=== PATIENT | female | born 1970 | race Caucasian/White ===

== ENCOUNTER 2018-09-07 06:18 | Day surgery (SDC) | payer MEDICAID, SELFPAY ==
[2018-08-07 08:53] VITALS: BMI 20.4
[2018-09-07 06:53] VITALS: BP 112/73; PULSE 72; RESP 16; TEMP 37.1; O2SAT 100; BMI 20.8
[2018-09-07 06:58] LABS: Internal QC Validated? YES +Cl - CLEAR BKGD; Pregnancy, Urine Negative Negative
--- NOTE | 2018-09-07 07:25 | HP.PCM_ITS ---
Problem List (1) Anal or rectal pain Status: Acute (2) Hemorrhage of anus and rectum Status: Acute History of Present Illness Date of Admission: 09/07/18 DAVIDSON TURNER, is a 47 F who presents to the office today for occasional rectal bleeding and significant severe anal pain. Patient has had episodes of significant anal pain that have been going on for many years however over the last 3 months she has had 2 particular episodes that last for about 20 minutes having some ear pain in the anus with squeezing she thought that it might be food related in the past however there is really no triggers that she can recall. She has had rectal bleeding with this in the past as well all over the last one did not result in rectal bleeding. She has had no new changes in her medication she has had no trauma. She has not been complaining of any anal l eakage She does have a family history of maternal aunts x2 who have had colon cancer. Past Medical History Medical History: Medical History (Last Reviewed 09/07/18 @ 07:23 by Jovon Patiño MD) History of wisdom tooth extraction K08.409 Allergies No Known Allergies Allergy (Verified 09/04/18 11:48) Home Medications: Ambulatory Orders Medication Instructions Recorded multivitamin,[id number] 1 tab PO DAILY 08/07/18 tablet Surgical History: Surgical History (Last Reviewed 09/07/18 @ 07:23 by Jovon Patiño MD) H/O breast augmentation Z98.82 History of arthroscopic knee surgery Z98.890 Smoking Status: Never smoker Tobacco Use: Non-smoker - *Family History Maternal Family History: Family History (Last Reviewed 09/07/18 @ 07:23 by Jovon Patiño MD) Mother Cancer Grandmother Colon cancer Grandfather Colon cancer Father Diabetes Review of Systems Constitutional: Denies: Chills, Fever, Weight Change Cardiovascular: Denies: Chest Pain, Chest Pressure, Chest Tightness, Palpitations Respiratory: Denies: Cough, Hemoptysis, Shortness of breath at rest, Shortness of breath upon exertion, Wheezing Gastrointestinal: Denies: Abdominal Pain, Constipation, Diarrhea, Hematemesis, Nausea, Melena, Vomiting VTE Information - Inpt Only VTE Present on Admission: No VTE Mechan Device Prophylaxis: None VTE Pharm Prophylaxis ordered?: No Reason prophylaxis not ordered:: Treatment Not Indicated Patient Problems: Active and Suspected Problems (Last Reviewed 08/07/18 @ 09:47 by Jovno Patiño MD) Anal or rectal pain (Acute) Hemorrhage of anus and rectum (Acute) - Physical Exam General: Alert, Oriented x3 Neck: Supple, No JVD Lungs: Clear to auscultation Cardiovascular: Regular rate, Regular Rhythm, No murmurs Abdomen: Bowel Sounds Present, Soft, Non Tender, Non-Distended Vital Signs Temp Pulse Resp BP Pulse Ox 98.8 F 72 16 112/73 100 09/07/18 06:53 09/07/18 06:53 09/07/18 06:53 09/07/18 06:53 09/07/18 06:53 Oxygen Delivery Method Room Air Weight: 117 lb 8.102 oz Body Mass Index (BMI) 20.8 Laboratory Tests Past 24 Hrs 09/07/18 06:35 Urine Test Negative Assessment/Plan All Active Problems (Last Reviewed 08/07/18 @ 09:47 by Jovon Patiño MD) Anal or rectal pain (Acute) Hemorrhage of anus and rectum (Acute) Left breast lump (Acute) My plan is to perform a colonoscopy for evaluation. I have explained the risk and benefits of the procedure and described the procedure in detail. I discussed the risk to the patient including but not limited to infection bleeding perforation of the GI tract which could require additional surgeries. Also we discussed the possibility of an incomplete procedure or injury to any internal organs or complications of anesthesia. The patient understands these risks and agrees to proceed.
--- NOTE | 2018-09-07 07:30 | COLBX_PTH ---
PATIENT: DAVIDSON TURNER LOC: EN U#:[id number] AGE/SX: 47/F ROOM: RE09/07/[address]: Dr. Jovon Patiño MD : 1970 BED: DIS: 09/07/2018 SPEC #: [id number] RECD: 09/07/18 10:06 STATUS: DIONE NATALI #: [id number] DARION: 09/07/18 07:[address]: Jovon Patiño DEPT: SURGICAL PATHOLOGY RECD BY: Neal Angela ENTERED: 09/07/18 10:18 SP TYPE: COLON BX OT DR: Krista Viera, REGIONAL DIRECTOR-C Tissues: COLON BIOPSY Procedures: Surgery Specimen Level IV HEADER OPERATION: Colonoscopy (MAC) PRE-OP DIAGNOSIS: Rectal pain; hemorrhage of rectum/anus TISSUE SUBMITTED: Random colonic biopsy MICROSCOPIC DIAGNOSIS Colon, random biopsy: No pathologic diagnosis. No evidence of colitis. See comment. AM:marylou 09/08/18 COMMENT Focal recent mucosal hemorrhage is noted in the mucosa. The significance of this is unclear. MICROSCOPIC DESCRIPTION Slides are reviewed. GROSS DESCRIPTION Received in fixative is one container labeled with the patient's name and designated random colonic biopsy. The specimen consists of multiple irregular fragments of light rolon soft tissue that in aggregate measure 2 x 0.5 x 0.1 cm. The specimen is totally submitted in one cassette. / SJ:marylou 09/07/18 TC:5 CPT: 11294
[2018-09-07 07:45] VITALS: BP 112/73; BP 93/61; PULSE 69; RESP 16; TEMP 36.6; O2SAT 100
--- NOTE | 2018-09-07 07:49 | OP.ENDO_ITS ---
09/07/2018 Krista Viera NP [facility] [address] [place] [id number] Re : Colonoscopy procedure for Brenda Whatley Dear Ms. Viera This procedure was performed on Friday, September 07, 2018. My impressions and recommendations are as follows: Impressions : - The entire examined colon is normal. Biopsied. - The entire examined colon is normal. Recommendations : - Discharge patient to home. - Resume previous diet. - Continue present medications. - Await pathology results. - Repeat colonoscopy in 10 years for screening purposes. - Return to my office in 1 week. My findings are described in the full procedure note, which is enclosed. If I can be of further assistance, please feel free to contact me at Doctor phone number(s): , Fax: [phone], Work: . Sincerely, MD Jovon Lin MD 09/07/2018 7:49:20 AM This report has been signed electronically.
[2018-09-07 07:50] VITALS: BP 112/73; PULSE 65; RESP 18; O2SAT 100
[2018-09-07 07:55] VITALS: BP 112/73; BP 93/66; PULSE 60; RESP 18; O2SAT 100
[2018-09-07 08:00] VITALS: BP 112/73; BP 91/64; PULSE 62; RESP 18; TEMP 36.2; O2SAT 100
[2018-09-07 08:10] VITALS: BP 112/73
== END 2018-09-07 08:32 | disposition home or self-care (01) ==
LOC: EN 06:19 → AC 06:28
PROVIDERS: Anesthesiology; Family Provider Nurse Practitioner; PCP Nurse Practitioner; Referring Provider Surgery; Visit Provider Surgery
PROC: 0DJD8ZZ Inspection of Lower Intestinal Tract, Via Natural or Artificial Opening Endoscopic (ICD-10-PCS; CPT 45378; principal; 2018-09-07 07:25)
DX: K62.89 Other specified diseases of anus and rectum (principal); K62.5 Hemorrhage of anus and rectum; F32.9 Major depressive disorder, single episode, unspecified; F41.9 Anxiety disorder, unspecified; Z80.0 Family history of malignant neoplasm of digestive organs
CPT/HCPCS: 45380; 81025; 88305; J7120

== ENCOUNTER → 2024-05-20 | Outpatient (CLI) | payer OTHER, SELFPAY ==
[2024-05-20 20:59] LABS: Absolute Lymphocyte Count 1.18 X10^3/uL (0.83-4.51); Absolute Neutrophil Count 2.5 X10^3/uL (2.0-7.7); Basophil# 0.04 X10^3/uL; Eosinophil# 0.03 X10^3/uL; Eosinophils% 0.8 % (0-5); Hematocrit 40.6 % (37-47); Hemoglobin 13.5 g/dL (12.0-15.0); Lymphocyte # 1.18 X10^3/ul (0.83-4.51); Mean Corp Hgb Conc 33.3 g/dL (32-36); Mean Corpuscular Hgb 30.1 pg (27.0-32.0); Mean Corpuscular Volume 90.6 fL (81-99); Mean Platelet Vol. 11.3 fl (6.2-12.0); Monocyte# 0.21 X10^3/uL; Monocyte% 5.3 % (0-10); NRBC Flagged by Analyzer 0 % (0-5); Neutrophil # 2.47 X10^3/uL (2.7-7.7); Neutrophil % 62.9 % (47-70); Platelet Count 229 K/mm3 (150-450); RBC Distribution Width CV 12.8 % (11.6-14.6); RBC Distribution Width SD 41.7 fl (35.1-43.9); Red Blood Count 4.48 M/mm3 (4.2-5.4); White Blood Count 3.9 K/mm3 (4.4-11.0)
[2024-05-20 21:21] LABS: ALB/GLOB Ratio 1.2 RATIO (0.9-2.4); AST(SGOT) 21 U/L (15-37); Alanine Aminotransfer ALT/SGPT 26 U/L (13-56); Albumin, Serum 4.1 g/dL (3.2-5.0); Alkaline Phosphatase 94 U/L (45-117); Anion Gap 3 (5-15); BUN 12 mg/dL (7-18); BUN/Creat Ratio 8.8 RATIO (10-20); Chloride 106 mmol/L (98-107); Cholesterol 179 mg/dL (200); Creatinine, Serum 1.36 mg/dL (0.55-1.02); EST Glomerular Filtration Rate 44 mL/min (>60); Est Glom Filt Rate - Afr Amer 53 mL/min (>60); Globulin 3.3 g/dL (2.2-4.2); Glucose 163 mg/dL (74-106); High Density Lipoprotein 78 mg/dL; Potassium 3.7 mmol/L (3.5-5.1); Protein, Total 7.4 g/dL (6.4-8.2); Sodium Level 140 mmol/L (136-145); Triglycerides 116 mg/dL; Very Low Density Lipoprotein 23 mg/dL (5-40)
== END | disposition home or self-care (01) ==
PROVIDERS: PCP Nurse Practitioner; Referring Provider Nurse Practitioner; Visit Provider Nurse Practitioner
DX: Z00.00 Encounter for general adult medical examination without abnormal findings (principal)
CPT/HCPCS: 80053; 80061; 84443; 85025

== ENCOUNTER → 2024-06-22 | Outpatient (CLI) | payer OTHER, SELFPAY ==
[2024-06-22 22:55] LABS: ALB/GLOB Ratio 1.3 RATIO (0.9-2.4); AST(SGOT) 17 U/L (15-37); Alanine Aminotransfer ALT/SGPT 24 U/L (13-56); Albumin, Serum 4.2 g/dL (3.2-5.0); Alkaline Phosphatase 92 U/L (45-117); Anion Gap 5 (5-15); BUN 18 mg/dL (7-18); BUN/Creat Ratio 14.9 RATIO (10-20); Calcium,Total 9.3 mg/dL (8.5-10.1); Chloride 107 mmol/L (98-107); Creatinine, Serum 1.21 mg/dL (0.55-1.02); EST Glomerular Filtration Rate 50 mL/min (>60); Est Glom Filt Rate - Afr Amer 60 mL/min (>60); Globulin 3.3 g/dL (2.2-4.2); Glucose 114 mg/dL (74-106); Potassium 3.5 mmol/L (3.5-5.1); Protein, Total 7.5 g/dL (6.4-8.2); Sodium Level 141 mmol/L (136-145)
== END | disposition home or self-care (01) ==
PROVIDERS: PCP Nurse Practitioner; Visit Provider Nurse Practitioner
DX: R94.4 Abnormal results of kidney function studies (principal)
CPT/HCPCS: 80053

== ENCOUNTER → 2024-12-10 | Outpatient (CLI) | payer OTHER, SELFPAY ==
--- OUTSIDE RECORDS SUMMARY | 2024-12-10 22:47 | XMS RPT_ITS | CCD ---
Author Organization [facility] Partnership [facility] Care Team Providers Care Scallop Cutter Name Role Phone Romel Amari Unavailable Unavailable Pcp, No Primary Care Provider Unavailabl e Unavailable Primary Care Provider Unavailabl e Unavailable Primary Care Provider Unavailabl e ALICIA HART Attending Unavailable SELF Referring Unavailable IERNA DAMON Attending Unavailable IRENA DAMON Referring Unavailable IRENA DAMON Attending Unavailable Maximiliano ROOM INSPECTOR.PICK UP OPERATOR, Stacia Dominguez Primary Care Provide r STACIA NIEVES Referring Unavailable STACIA NIEVES Primary Care Unavailable Maximiliano PUBLIC AFFAIRS SPECIALIST, Stacia Attending Unavailable Maximiliano PUBLIC AFFAIRS SPECIALIST, Stacia Referring Unavailable Maximiliano PUBLIC AFFAIRS SPECIALIST, Stacia Primary Care Unavailable Maximiliano PUBLIC AFFAIRS SPECIALIST, Stacia Attending Unavailable Maximiliano PUBLIC AFFAIRS SPECIALIST, Stacia Primary Care Unavailable Medications Current Medications Medication Drug Class(es) Dates Sig (Normalized) Sig (Original) Cortisol Locomotive Engineer Diesel 90 ct. ([employer]) (7 sources) Start: 08-21-2023 Cortisol Locomotive Engineer Diesel 90 ct. ([employer]) Take one tablet at bedtime. 08/21/2023 Active Start: 08-21-2023 Cortisol Manag er 90 ct. ([employer]) Take one tablet at bedtime. 0 08/21/2023 Active Comment on above: Take one tablet at b edtime. Magnesium glycinate (7 sources) Start: 08-21-2023 Magnesium Glycinate 120mg (Pure [employer]caps[employer]) Take 2 capsules before bed 08/21/2023 Active Start: 08-21-2023 Magnesium Glyc inate 120mg ([employer]caps[employer]) Take 2 capsules before bed 0 08/21/2023 Active Comment on above: Take 2 capsules befo re bed OTC NUTRITIONAL SUPPLEMENT (7 sources) take 1 scoop(s) by mouth once daily OTC NUTRITIONAL SUPPLEMENT Take 1 Scoop by mouth once daily. Armra powder Active take 1 scoop(s) by mouth once da nat OTC NUTRITIONAL SUPPLEMENT Take 1 Scoop by mouth once daily. Armra powder 0 Active Comment on above: Take 1 Scoop by mout h once daily. Armra powder Completed/Discontinued Medications Medication Drug Class(es) Dates Sig (Normalized) Sig (Original) Naltrexone (2 sources) Opioid Antagonist Start: 2022 take 1 capsule by mouth once daily naltrexone capsule 1.5 mg (CPD) Take 1 capsule by mouth once daily. 90 capsule 4 2022 Active Comment on above: Take 1 capsule by mo uth once daily. rhapontic rhubarb root extract (ESTROVERA) 4 mg tablet (5 sources) Start: 06-24-2022 take 1 tablet by mouth once daily at mealtime rhapontic rhubarb root extract (ESTROVERA) 4 mg tablet Indications: Hot flushes, perimenopausal Take 1 tablet by mouth daily with food. 0 06/24/2022 Active Comment on above: Take 1 tablet by lilian th daily with food. Problems Problem Classification Problem Date Documented Da te Episodic/Chronic Administrative/social admission (4 sources) Patient encounter status; Translations: [Dietary counseling and surveillance] Episodic Allergic reactions (2 sources) Propensity to adverse reactions to food; Translations: [Other adverse food reactions, not elsewhere classified, initial encounter] Episodic Headache; including migraine (1 source) Headache; Translations: [Headache] Onset: 05-30-2024 Episodic Malaise and fatigue (1 source) Fatigue; Translations: [Chronic fatigue, unspecified] Chronic Malaise and fatigue (1 source) Malaise; Translations: [Other malaise] Episodic Menopausal disorders (4 sources) Menopausal flushing; Translations: [Menopausal and female climacteric states] Onset: 09-30-2023 Chronic Nutritional deficiencies (1 source) Vitamin deficiency; Translations: [Deficiency of nutrient element, unspecified] Episodic Other circulatory disease (1 source) Raynaud's disease; Translations: [Raynaud's syndrome without gangrene] Chronic Other connective tissue disease (2 sources) Muscle pain; Translations: [Myalgia, unspecified site] Episodic Other gastrointestinal disorders (1 source) Dysphagia, unspecified; Translations: [Dysphagia, unspecified] Onset: 05-30-2024 Episodic Other non-traumatic joint disorders (2 sources) Joint pain; Translations: [Pain in unspecified joint] Episodic Other screening for suspected conditions (not mental disorders or infectious disease) (2 sources) Encounter for screening mammogram for malignant neoplasm of breast; Translations: [Abnormal results of kidney function studies] Onset: 11-20-2023 Episodic Residual codes; unclassified (1 source) Disturbance in sleep behavior; Translations: [Sleep disorder, unspecified] Episodic Residual codes; unclassified (1 source) Contact with and (suspected) exposure to mold (toxic); Translations: [Contact with and (suspected) exposure to mold] Episodic Residual codes; unclassified (1 source) Difficulty sleeping ; Translations: [Sleep deprivation] 08-21-2023 Episodic Unclassified (1 source) Dysuria / R30.0(ICD-10) Onset: 09-29-2017 Unclassified (1 source) Frequency of micturition / R35.0(ICD-10) Onset: 09-29-2017 Unclassified (1 source) Dorsalgia, unspecified / M54.9(ICD-10) Onset: 09-29-2017 Unclassified (1 source) Established Patient Onset: 08-21-2023 Urinary tract infections (1 source) Urinary tract infections Onset: 09-29-2017 Results Test Name Value Interpretation Reference Range Facility Comprehensive Metabolic Prof [facility] 06-22-2024 Albumin [Mass/Vol] 4.2 g/dL Normal 3.2-5.0 [facility] Comment on above: Performed By: #### L 500.4050 #### [facility] [address] [place], [place], [id number] Albumin/Globulin [Mass ratio] 1.3 {ratio} Normal 0.9-2.4 [facility] Comment on above: Performed By: #### L 500.4050 #### [facility] [address] [place], [address] ALK P 92 U/L Normal 45-117 [facility] Comment on above: Performed By: #### L 500.4050 #### [facility] [address] [place], [address] ALT [Catalytic activity/Vol] 24 U/L Normal 13-56 [facility] Comment on above: Performed By: #### L 500.4050 #### [facility] [address] [place], [address] AST [Catalytic activity/Vol] 17 U/L Normal 15-37 [facility] Comment on above: Performed By: #### L 500.4050 #### [facility] [address] [place], [address] Bilirubin [Mass/Vol] 0.30 mg/dL Normal 0.20-1.00 [facility] Comment on above: Result Comment: For patients on eltrombopag therapy, use of Dimension Shickley TBIL is not recommended. Performed By: #### L 500.4050 #### [facility] [address] [place], [address] BUN/CRE 14.9 RATIO Normal 10-20 [facility] Comment on above: Performed By: #### L 500.4050 #### [facility] [address] [place], [address] CA,Total 9.3 mg/dL Normal 8.5-10.1 [facility] Comment on above: Performed By: #### L 500.4050 #### [facility] [address] [place], [address] Chloride [Moles/Vol] 107 mmol/L Normal 98-107 [facility] Comment on above: Performed By: #### L 500.4050 #### [facility] [address] [place], [address] CO2 [Moles/Vol] 29.0 mmol/L Normal 21.0-32.0 [facility] Comment on above: Performed By: #### L 500.4050 #### [facility] [address] [place], [address] Creatinine [Mass/Vol] 1.21 mg/dL High 0.55-1.02 [facility] Comment on above: Result Comment: The validity of the calculated GFR GFRAA in patients over 70 years has not been determined. Clinical correlation is essential. Performed By: #### L 500.4050 #### [facility] [address] [place], [address] EST GFR - AA 60 mL/min Normal >60 [facility] Comment on above: Result Comment: Afri can Palauan GFR Calc Performed By: #### L 500.4050 #### [facility] [address] [place], [address] GAP 5 Normal 5-15 [facility] Comment on above: Performed By: #### L 500.4050 #### [facility] [address] [place], [address] GFR/1.73 sq M.predicted among non-blacks MDRD (S/P/Bld) [Vol rate/Area] 50 mL/min/{1.73_m2} Low >60 [facility] Comment on above: Result Comment: Non- GFR Calc Performed By: #### L 500.4050 #### [facility] [address] [place], [address] Globulin (S) [Mass/Vol] 3.3 g/dL Normal 2.2-4.2 [facility] Comment on above: Performed By: #### L 500.4050 #### [facility] [address] [place], [address] Glucose [Mass/Vol] 114 mg/dL High 74-106 [facility] Comment on above: Result Comment: Fast ing Glucose result from 100 to 125 mg/dL suggests IMPAIRED HOMEOSTASIS per A.D.A. criteria. Performed By: #### L 500.4050 #### [facility] [address] [place], [address] Potassium [Moles/Vol] 3.5 mmol/L Normal 3.5-5.1 [facility] Comment on above: Performed By: #### L 500.4050 #### [facility] [address] [place], [address] Sodium [Moles/Vol] 141 mmol/L Normal 136-145 [facility] Comment on above: Performed By: #### L 500.4050 #### [facility] [address] [place], [address] T PROT 7.5 g/dL Normal 6.4-8.2 [facility] Comment on above: Performed By: #### L 500.4050 #### [facility] [address] [place], [address] Urea nitrogen [Mass/Vol] 18 mg/dL Normal 7-18 [facility] Comment on above: Performed By: #### L 500.4050 #### [facility] [address] [place], [address] US THYROID/PARATHYROIDon US THYROID/PARATHYRO ID * * *Final Report* * * DATE OF EXAM: May 30 2024 9:18AM BON 1048 - US THYROID/PARATHYROID / PROCEDURE REASON: Dysphagia * * * * Physician Interpretation * * * * EXAMINATION: THYROID ULTRASOUND CLINICAL HISTORY: Dysphagia TECHNIQUE: Sonography and Doppler imaging of the thyroid was performed. Images were obtained and stored in a permanent archive. MQ: UST_1 COMPARISON: None. RESULT: Right Lobe: 4.0 cm x 0.9 cm x 1.4 cm; homogeneous echogenicity, expected vascular flow. Left Lobe: 3.2 cm x 1.1 cm x 1.2 cm; homogeneous echogenicity, expected vascular flow. Isthmus: 0.1 cm The most suspicious thyroid nodule(s) (up to four) as below: Nodules: None IMPRESSION: Normal sonographic appearance of the thyroid. ACR recommendations are strictly based on the size and imaging appearance at the time of the exam and do not consider stability or previous biopsy results. Director Process Engineering: QUIANA Transcribe Date/Time: Jun 02 2024 7:10A Dictated by : KARTIK ARRIAGA MD This examination was interpreted and the report reviewed and electronically signed by: KARTIK ARRIAGA MD on Jun 02 2024 7:11AM EST [id number] [facility] CBC W/Diff, Automatedon 12- Absolute Lymph 1.18 X10 3/uL Normal 0.83-4.51 [facility] Comment on above: Performed By: #### L 500.4100, L500.4050, L501.9520, L100.0100 #### [facility] [address] [place], [address] Absolute Neut 2.5 X10 3/uL Normal 2.0-7.7 [facility] Comment on above: Performed By: #### L 500.4100, L500.4050, L501.9520, L100.0100 #### [facility] [address] [place], [address] Basophils/100 WBC (Bld) 1.0 % Normal 0-1 [facility] Comment on above: Performed By: #### L 500.4100, L500.4050, L501.9520, L100.0100 #### [facility] [address] [place], [address] Eosinophils/100 WBC (Bld) 0.8 % Normal 0-5 [facility] Comment on above: Performed By: #### L 500.4100, L500.4050, L501.9520, L100.0100 #### [facility] [address] [place], [address] Erythrocyte distribution width (RBC) [Ratio] 12.8 % Normal 11.6-14.6 [facility] Comment on above: Performed By: #### L 500.4100, L500.4050, L501.9520, L100.0100 #### [facility] [address] [place], [address] Hematocrit (Bld) [Volume fraction] 40.6 % Normal 37-47 [facility] Comment on above: Performed By: #### L 500.4100, L500.4050, L501.9520, L100.0100 #### [facility] [address] [place], [address] Hemoglobin (Bld) [Mass/Vol] 13.5 g/dL Normal 12.0-15.0 [facility] Comment on above: Performed By: #### L 500.4100, L500.4050, L501.9520, L100.0100 #### [facility] [address] [place], [address] IG% 0.000 Normal 0.0-0.9 [facility] Comment on above: Result Comment: IG% - Immature Granulocytes (promyelocytes, myelocytes and metamyelocytes) > 1% indicates that a LEFT SHIFT is Present. Performed By: #### L 500.4100, L500.4050, L501.9520, L100.0100 #### [facility] [address] [place], [address] Lymphocytes/100 WBC (Bld) 30.0 % Normal 19-41 [facility] Comment on above: Performed By: #### L 500.4100, L500.4050, L501.9520, L100.0100 #### [facility] [address] [place], [address] MCH (RBC) [Entitic mass] 30.1 pg Normal 27.0-32.0 [facility] Comment on above: Performed By: #### L 500.4100, L500.4050, L501.9520, L100.0100 #### [facility] [address] [place], [address] MCHC (RBC) [Mass/Vol] 33.3 g/dL Normal 32-36 [facility] Comment on above: Performed By: #### L 500.4100, L500.4050, L501.9520, L100.0100 #### [facility] [address] [place], [address] MCV (RBC) [Entitic vol] 90.6 fL Normal 81-99 [facility] Comment on above: Performed By: #### L 500.4100, L500.4050, L501.9520, L100.0100 #### [facility] [address] [place], [address] Monocytes/100 WBC (Bld) 5.3 % Normal 0-10 [facility] Comment on above: Performed By: #### L 500.4100, L500.4050, L501.9520, L100.0100 #### [facility] [address] [place], [address] Neutrophils/100 WBC (Bld) 62.9 % Normal 47-70 [facility] Comment on above: Performed By: #### L 500.4100, L500.4050, L501.9520, L100.0100 #### [facility] [address] [place], [address] Nucleated RBC (Bld) [#/Vol] 0 10*3/uL Normal 0-5 [facility] Comment on above: Performed By: #### L 500.4100, L500.4050, L501.9520, L100.0100 #### [facility] [address] [place], [address] Platelet mean volume (Bld) [Entitic vol] 11.3 fL Normal 6.2-12.0 [facility] Comment on above: Performed By: #### L 500.4100, L500.4050, L501.9520, L100.0100 #### [facility] [address] [place], [address] Platelets (Bld) [#/Vol] 229 10*3/uL Normal 150-450 [facility] Comment on above: Performed By: #### L 500.4100, L500.4050, L501.9520, L100.0100 #### [facility] [address] [place], [address] RBC (Bld) [#/Vol] 4.48 10*6/uL Normal 4.2-5.4 [facility] Comment on above: Performed By: #### L 500.4100, L500.4050, L501.9520, L100.0100 #### [facility] [address] [place], [address] RDW SD 41.7 fl Normal 35.1-43.9 [facility] Comment on above: Performed By: #### L 500.4100, L500.4050, L501.9520, L100.0100 #### [facility] [address] [place], [address] WBC (Bld) [#/Vol] 3.9 10*3/uL Low 4.4-11.0 [facility] Comment on above: Performed By: #### L 500.4100, L500.4050, L501.9520, L100.0100 #### [facility] [address] [place], [address] Comprehensive Metabolic Prof [facility] 05-20-2024 Albumin [Mass/Vol] 4.1 g/dL Normal 3.2-5.0 [facility] Comment on above: Performed By: #### L 500.4100, L500.4050, L501.9520, L100.0100 #### [facility] [address] [place], [address] Albumin/Globulin [Mass ratio] 1.2 {ratio} Normal 0.9-2.4 [facility] Comment on above: Performed By: #### L 500.4100, L500.4050, L501.9520, L100.0100 #### [facility] [address] [place], [address] ALK P 94 U/L Normal 45-117 [facility] Comment on above: Performed By: #### L 500.4100, L500.4050, L501.9520, L100.0100 #### [facility] [address] [place], [address] ALT [Catalytic activity/Vol] 26 U/L Normal 13-56 [facility] Comment on above: Performed By: #### L 500.4100, L500.4050, L501.9520, L100.0100 #### [facility] [address] [place], [address] AST [Catalytic activity/Vol] 21 U/L Normal 15-37 [facility] Comment on above: Performed By: #### L 500.4100, L500.4050, L501.9520, L100.0100 #### [facility] [address] [place], [address] Bilirubin [Mass/Vol] 0.30 mg/dL Normal 0.20-1.00 [facility] Comment on above: Result Comment: For patients on eltrombopag therapy, use of Dimension Shickley TBIL is not recommended. Performed By: #### L 500.4100, L500.4050, L501.9520, L100.0100 #### [facility] [address] [place], [address] BUN/CRE 8.8 RATIO Low 10-20 [facility] Comment on above: Performed By: #### L 500.4100, L500.4050, L501.9520, L100.0100 #### [facility] [address] [place], [address] CA,Total 9.0 mg/dL Normal 8.5-10.1 [facility] Comment on above: Performed By: #### L 500.4100, L500.4050, L501.9520, L100.0100 #### [facility] [address] [place], [address] Chloride [Moles/Vol] 106 mmol/L Normal 98-107 [facility] Comment on above: Performed By: #### L 500.4100, L500.4050, L501.9520, L100.0100 #### [facility] [address] [place], [address] CO2 [Moles/Vol] 31.0 mmol/L Normal 21.0-32.0 [facility] Comment on above: Performed By: #### L 500.4100, L500.4050, L501.9520, L100.0100 #### [facility] [address] [place], [address] Creatinine [Mass/Vol] 1.36 mg/dL High 0.55-1.02 [facility] Comment on above: Result Comment: The validity of the calculated GFR GFRAA in patients over 70 years has not been determined. Clinical correlation is essential. Performed By: #### L 500.4100, L500.4050, L501.9520, L100.0100 #### [facility] [address] [place], [address] EST GFR - AA 53 mL/min Low >60 [facility] Comment on above: Result Comment: Afri can Palauan GFR Calc Performed By: #### L 500.4100, L500.4050, L501.9520, L100.0100 #### [facility] [address] [place], [address] GAP 3 Low 5-15 [facility] Comment on above: Performed By: #### L 500.4100, L500.4050, L501.9520, L100.0100 #### [facility] [address] [place], [address] GFR/1.73 sq M.predicted among non-blacks MDRD (S/P/Bld) [Vol rate/Area] 44 mL/min/{1.73_m2} Low >60 [facility] Comment on above: Result Comment: Non- GFR Calc Performed By: #### L 500.4100, L500.4050, L501.9520, L100.0100 #### [facility] [address] [place], [address] Globulin (S) [Mass/Vol] 3.3 g/dL Normal 2.2-4.2 [facility] Comment on above: Performed By: #### L 500.4100, L500.4050, L501.9520, L100.0100 #### [facility] [address] [place], [address] Glucose [Mass/Vol] 163 mg/dL High 74-106 [facility] Comment on above: Result Comment: Fast ing Glucose result greater than or equal to 126 mg/dL suggests DIABETES MELLITUS per A.D.A. criteria. Performed By: #### L 500.4100, L500.4050, L501.9520, L100.0100 #### [facility] [address] [place], [address] Potassium [Moles/Vol] 3.7 mmol/L Normal 3.5-5.1 [facility] Comment on above: Performed By: #### L 500.4100, L500.4050, L501.9520, L100.0100 #### [facility] [address] [place], [address] Sodium [Moles/Vol] 140 mmol/L Normal 136-145 [facility] Comment on above: Performed By: #### L 500.4100, L500.4050, L501.9520, L100.0100 #### [facility] [address] [place], [address] T PROT 7.4 g/dL Normal 6.4-8.2 [facility] Comment on above: Performed By: #### L 500.4100, L500.4050, L501.9520, L100.0100 #### [facility] [address] [place], [address] Urea nitrogen [Mass/Vol] 12 mg/dL Normal 7-18 [facility] Comment on above: Performed By: #### L 500.4100, L500.4050, L501.9520, L100.0100 #### [facility] [address] [place], [address] Lipid Profileon 05-20-2024 Cholesterol [Mass/Vol] 179 mg/dL Normal 200 [facility] Comment on above: Result Comment: <200 mg/dL Desirable 200-240 mg/dL Borderline >240 mg/dL High Risk Performed By: #### L 500.4100, L500.4050, L501.9520, L100.0100 #### [facility] [address] [place], [address] Cholesterol in HDL [Mass/Vol] 78 mg/dL Normal [facility] Comment on above: Result Comment: The drugs N-Acetylcysteine and Metamizole may falsely depress this assay. Reference Range HDL <40 mg/dL Low HDL Cholesterol HDL >or= 60 mg/dL High HDL Cholesterol Performed By: #### L 500.4100, L500.4050, L501.9520, L100.0100 #### [facility] [address] [place], [address] Cholesterol in LDL [Mass/Vol] 78 mg/dL Normal 0-130 [facility] Comment on above: Performed By: #### L 500.4100, L500.4050, L501.9520, L100.0100 #### [facility] [address] [place], [address] Cholesterol in VLDL [Mass/Vol] 23 mg/dL Normal 5-40 [facility] Comment on above: Performed By: #### L 500.4100, L500.4050, L501.9520, L100.0100 #### [facility] [address] [place], [address] Triglyceride [Mass/Vol] 116 mg/dL Normal [facility] Comment on above: Result Comment: The drugs N-Acetylcysteine and Metamizole may falsely depress this assay. Serum Triglycerides Reference Interval Normal <150 mg/dL Borderline high 150 - 199 mg/dL High 200 - 499 mg/dL Very High > or = 500 mg/dL Performed By: #### L 500.4100, L500.4050, L501.9520, L100.0100 #### [facility] [address] [place], [address] Thyroid Stim Hormone (TSH)on 05-20-2024 TSH 1.210 uIU/mL Normal 0.358-3.740 [facility] Comment on above: Performed By: #### L 500.4100, L500.4050, L501.9520, L100.0100 #### [facility] [address] [place], [address] CNCOon 11-21-2023 [facility] HNO ID: [id number] Author: COORDINATOR, MAMMOGRAPHY, ? Service: ? Author Type: Physician Type: Letter Filed: 11/21/2023 08:26 Note Text: [address] [address] November 21, 2023 PID: [id number] Brenda Turner [address] [place] [address] Dear Ms. Turner, We are pleased to inform you that the results of your recent breast imaging exam on 11/20/2023 are normal. Your mammogram demonstrates that you have dense breast tissue, which could hide abnormalities. Dense breast tissue, in and of itself, is a relatively common condition. Therefore, this information is not provided to cause undue concern; rather, it is to raise your awareness and promote discussion with your health care provider regarding the presence of dense breast tissue in addition to other risk factors. Early detection of cancer is very important. We also understand recommendations regarding breast cancer screening are controversial. Please discuss with your primary care provider which strategy is best for you and whether a mammogram is right for you. Your imaging studies and report will be kept on file at [facility] as part of your permanent medical record and are available for your continuing care. Thank you for allowing us to help in meeting your health care needs. Sincerely, Dr. Ernst Interpreting Radiologist [facility] (Normal over 40) Normal [facility] SCREENING W TOMOon 11-19 GRETEL SCREENING W DARCY * * *Final Report* * * DATE OF EXAM: Nov 20 2023 11:42AM LDW [id number] - GRETEL SCREENING W DARCY / PROCEDURE REASON: Z12.31 Breast screening for cancer by mammogram * * * * Physician Interpretation * * * * #[id number] - GRETEL SCREENING W DARCY BILATERAL DIGITAL SCREENING MAMMOGRAM TOMOSYNTHESIS WITH CAD: 11/20/2023 HISTORY: / Screening Mammogram-Patient reports NO symptoms. /SEE TECH NOTE. RESULT: TECHNIQUE: The study was acquired using full field digital technology and interpreted from soft copy. Digital Breast Tomosynthesis (DBT) images were obtained and used to assist in the interpretation of this examination. Current study was also evaluated with a Computer Aided Detection (CAD). No prior exams were available for comparison. The breasts are heterogeneously dense, which may obscure small masses. Bilateral breast implants are present. No significant masses, calcifications, or other findings are seen in either breast. IMPRESSION: NEGATIVE There is no mammographic evidence of malignancy. A 1 year screening mammogram is recommended. Arely palumbo/callum:11/21/2023 08:26:01 Hydraulic Miner(s): Cande Barros (Kirstie)(M), [facility] letter sent: Normal over 40 Mammogram BI-RADS: 1 Negative Multiple national specialty organizations have released breast cancer screening guidelines for women at average risk for developing breast cancer - guidelines that are based on both evidence and opinion, yet differ on when to start and how often to screen for breast cancer. With representation from Breast Imaging, Internal Medicine, Women's Health, Family Medicine, and Medical/Surgical Oncology, the [facility] has carefully reviewed the data and reached the following consensus: 1) All women should engage in shared decision-making with their providers to decide when to start and how often to screen; 2) All women should have the opportunity to start screening mammography at age 40; 3) For women ages 45-55, we recommend annual screening mammograms; 4) For women ages 55 and over, we support both the transition from an annual to a biennial interval if this aligns more with patient's values and preferences, or continuation with annual screening; 5) All women should discuss with their providers when to stop screening mammograms. Director Process Engineering: Callum Transcribe Date/Time: Nov 20 2023 11:06A Dictated by : ARELY ERNST MD This examination was interpreted and the report reviewed and electronically signed by: ARELY ERNST MD on Nov 21 2023 8:26AM EST [id number] Normal [facility] BIOAVAIL TESTO/SHBG, FEM AND CHILDon 09-30-2023 SEX HORMONE BIND GLB 58 nmol/L Normal 17-125 [facility] Comment on above: Order Comment: Speci men Type: BLOOD SPECIMEN Ordering Facility: [facility] Address: [address] [place] [address] Result Comment: REFE RENCE INTERVAL: Sex Hormone Binding Globulin Access complete set of age- and/or gender-specific reference intervals for this test in the [facility] Test Directory ([employer]). Performed By: #### E STGEN, BTSTFC #### [facility] CLIA [id number] [address] [place] [address] TESTO BIOAVAILABLE 1.6 ng/dL Low 2.8-16.5 [facility] Comment on above: Order Comment: Yulissa men Type: BLOOD SPECIMEN Ordering Facility: [facility] Address: [address] [place] [address] Result Comment: REFE RENCE INTERVAL: Testosterone, Bioavailable by [employer] Females: Postmenopausal: 1.5 - 9.4 ng/dL INTERPRETIVE INFORMATION: Testosterone, Bioavailable by [employer] Bioavailable testosterone concentration is calculated using total testosterone (measured by mass spectrometry) and the binding constant of testosterone and sex hormone-binding globulin (SHBG) and/or albumin. For individuals on testosterone-suppressing hormone therapies (e.g., antiandrogens or estrogens), refer to cisgender female reference intervals. For a complete set of all established reference intervals, refer to [employer]/Tests/Pub/[id number]. Performed By: #### Laura STGEN, BTSTFC #### [facility] CLIA [id number] [address] [place] [address] Testosterone [Mass/Vol] 5 ng/dL Low 9-55 [facility] Comment on above: Order Comment: Speci men Type: BLOOD SPECIMEN Ordering Facility: [facility] Address: [address] [place] [address] Result Comment: REFE RENCE INTERVAL: Testosterone by [employer] Females Premenopausal 9-55 ng/dL Postmenopausal 5-32 ng/dL INTERPRETIVE INFORMATION: Testosterone by [employer] Free or bioavailable testosterone measurements may provide supportive information. For individuals on testosterone-suppressing hormone therapies (e.g., antiandrogens or estrogens), refer to cisgender female reference intervals. For a complete set of all established reference intervals, refer to [employer]/Tests/Pub/[id number]. This test was developed and its performance characteristics determined by [facility]. It has not been cleared or approved by the US Food and Drug Administration. This test was performed in a CLIA certified laboratory and is intended for clinical purposes. Performed By: #### Laura DUONG, BTSTFC #### [facility] CLIA [id number] [address] [place] [address] TESTOSTERONE FREE 0.6 pg/mL Low 1.1-5.8 [facility] Comment on above: Order Comment: Speci men Type: BLOOD SPECIMEN Ordering Facility: [facility] Address: [address] [place] [address] Result Comment: REFE RENCE INTERVAL: Testosterone, Free by [employer] Females Postmenopausal: 0.6 - 3.8 pg/mL INTERPRETIVE INFORMATION: Testosterone, Free by [employer] Free testosterone concentration is calculated using total testosterone (measured by mass spectrometry) and the binding constant of testosterone and sex hormone-binding globulin (SHBG). For individuals on testosterone-suppressing hormone therapies (e.g., antiandrogens or estrogens), refer to cisgender female reference intervals. For a complete set of all established reference intervals, refer to [employer]/Tests/Pub/[id number]. This test was developed and its performance characteristics determined by [facility]. It has not been cleared or approved by the US Food and Drug Administration. This test was performed in a CLIA certified laboratory and is intended for clinical purposes. Performed By: [facility] [address] [place] [address] Machine Pack Assembler: Sven Short MD, PhD CLIA Number: [id number] Performed By: #### Laura DUONG, BTST #### [facility] CLIA [id number] [address] [place] [address] DHEA-S BLDon 09-30-2023 DHEA-S [Mass/Vol] 35.4 ug/dL Normal 35.4-256.0 [facility] Comment on above: Order Comment: Speci men Type: BLOOD SPECIMEN Ordering Facility: [facility] Address: [address] [place] [address] Result Comment: Refe rence ranges are age and gender specific. For additional information, reference range tables can be found in the laboratory test directory. The normal values are based on the following source: Dehydroepiandrosterone sulfate (DHEA S) [package insert V 17.0 Maldivian]. [facility], [place], [place]: December 2012. Performed By: #### D ZAHIDA, 03301-6, 79983-8, 2839-9 #### [facility] CLIA [id number] [address] [place] [address] [place] ESTROGEN FRACTION BLon 09-29 ESTRADIOL <2.0 Normal [facility] Comment on above: Order Comment: Speci men Type: BLOOD SPECIMEN Ordering Facility: [facility] Address: [address] [place] [address] Result Comment: REFE RENCE INTERVAL: Estradiol by [employer] For a complete set of all established reference intervals, refer to [employer]/Tests/Pub/[id number]. This test was developed and its performance characteristics determined by [facility]. It has not been cleared or approved by the US Food and Drug Administration. This test was performed in a CLIA certified laboratory and is intended for clinical purposes. Performed By: #### CELINE KHALIL #### [facility] CLIA [id number] [address] [place] [address] ESTROGENS TOTAL See Note Normal [facility] Comment on above: Order Comment: Speci men Type: BLOOD SPECIMEN Ordering Facility: [facility] Address: [address] [place] [address] Result Comment: Unable to perform calculation due to an analyte concentration lower than the limit of quantitation. Reference interval of estrogens (pg/mL) Estrone Estradiol Total Estrogens Early follicular <150.0 30.0-100.0 30.0-250.0 Late follicular 100.0-250.0 100.0-400.0 200.0-650.0 Luteal <200.0 50.0-150.0 50.0-350.0 Post-menopausal 3.0-32.0 2.0-21.0 5.0-52.0 REFERENCE INTERVAL: Estrogens Total Calculation For a complete set of all established reference intervals, refer to [employer]/Tests/Pub/[id number]. Performed By: [facility] [address] [place] [address] Machine Pack Assembler: Sven Short MD, PhD CLIA Number: [id number] Performed By: #### CELINE KHALIL #### [facility] CLIA [id number] [address] [place] [address] ESTRONE 7.7 pg/mL Normal [facility] Comment on above: Order Comment: Speci men Type: BLOOD SPECIMEN Ordering Facility: [facility] Address: [address] [place] [address] Result Comment: INTERPRETIVE INFORMATION: Estrone by [employer] For a complete set of all established reference intervals, refer to [employer]/Tests/Pub/[id number]. This test was developed and its performance characteristics determined by [facility]. It has not been cleared or approved by the US Food and Drug Administration. This test was performed in a CLIA certified laboratory and is intended for clinical purposes. Performed By: #### E RHODA, [facility] #### [facility] [id number] [address] [place] [address] FSH SerPl-aCncon 09-30-2023 Follitropin Qn 146.2 m[IU]/mL Normal See comment [facility] Comment on above: Order Comment: Speci men Type: BLOOD SPECIMEN Ordering Facility: [facility] Address: [address] [place] [address] Result Comment: Refe rence range: Follicular: 3.5-12.5 mIU/mL Ovulation: 4.7-21.5 mIU/mL Luteal: 1.7-7.7 mIU/mL Postmenopausal: 25.8-134.8 mIU/mL Performed By: #### Austin TEAGUE, 96645-9, 18650-7, 2839-9 #### [facility] CLIA [id number] [address] [place] [address] [place] LH SerPl-aCncon 09-30-2023 Lutropin Qn 43.4 m[IU]/mL Normal See comment [facility] Comment on above: Order Comment: Speci men Type: BLOOD SPECIMEN Ordering Facility: [facility] Address: [address] [place] [address] Result Comment: Refe rence range: Follicular: 2.4-12.6 mIU/mL Midcycle: 14.0-95.6 mIU/mL Luteal: 1.0-11.4 mIU/mL Post Nina: 7.7-58.5 mIU/mL Performed By: #### Austin TEAGUE, 36616-5, 26010-0, 4849-9 #### [facility] CLIA [id number] [address] [place] [address] [place] Progest SerPl-mCncon 024 Progesterone [Mass/Vol] ng/mL Normal See comment [facility] Comment on above: Order Comment: Speci men Type: BLOOD SPECIMEN Ordering Facility: [facility] Address: [address] [place] [address] Result Comment: Mens trual Cycle Progesterone Reference Ranges: Follicular: <1.0 ng/mL Ovulation: <12.1 ng/mL Luteal: 1.8 to 23.9 ng/mL. Progesterone Reference Ranges vary by gestational period: First Trimester: 11.0 to 44.3 ng/mL Second Trimester: 25.4 to 83.3 ng/mL Third Trimester: 58.7 to 214 ng/mL Post menopausal Progesterone: <0.5 ng/mL Reference: 1. Progesterone (Progesterone III) [package insert V 1.0 Maldivian]. [facility], [place], [place]. March 2015. Performed By: #### D ZAHIDA, 78698-4, 89423-4, 2839-9 #### [facility] CLIA [id number] [address] [place] [address] [place] SHBG SerPl-sCncon 09-30-2023 Sex hormone binding globulin [Moles/Vol] 52 nmol/L Normal 17-125 [facility] Comment on above: Order Comment: Speci men Type: BLOOD SPECIMEN Ordering Facility: [facility] Address: [address] [place] [address] Performed By: #### 1 3967-5 #### [facility] CLIA [id number] [address] [place] [address] [place] CNOVon 01-13-2023 CNOV Office Visit (MEDN ) -- BRENDA TURNER ([id number]) 1970 F Date Time Provider Department 01/13/23 3:15 PM ALIC[facility] HART [facility] During your visit today, we recorded the following information about you: Pulse Blood pressure Weight Height 74/minute 98/59 55.3 kg 1.6 m Alicia Hart DO 01/13/2023 4:15 PM Signed Follow-up Visit Patient: Brenda Turner ALLERGIES No Known Allergies No current outpatient medications on file. No current facility-administered medications for this visit. No past medical history on file. No past surgical history on file. EVALUATION MSQ: PROMIS: Functional Medicine Timeline Subjective: 01/13/23 Dr. Alicia Hart 52 yo female pt with history of dysbiosis Pt previously saw Dr Celestin and is new to me today Energy is good, does get a dip in the afternoon, will drink tea Normal bowels 95% of the time Having neck pain radiating up to head and down to R shoulder blade. BL arm numbness/paresthesias upon awakening , resolves in 10-15 seconds Dry eyes- uses eye drops PRN No period for 1 year and 3 months, yesterday started having normal period Has had hot flashes and night sweats, not interested in HRT Took Y formula for 2 months, had strong nails while on it and nails are peeling again off it Taking Biocidin for about a week, was on vacation without it- tolerated it well with no off Also c/o bump on R ankle, hurts to wear heels and dance, getting worse September 13, 2022 Johann Celestin DO Subjective: Myalgias are resolved with egg elimination Doing well GI effects- Increased SIGA Fecal fat Increased RV Yeast++ Poor sleep, dry eyes, sugar cravings ++GENE Review of Systems: As above June 24, 2022 Johann Celestin DO Patient Goals: Health optimization HPI: 51 year old female with a pmh that presents to [facility] to optimize health. Previously used muscle testing to eliminate packaged foods, sugar, dairy I'm having menopause related issues, body aches, eye dryness, not sleeping well, hot flashes, and headaches at times. Menopause, sleep issues have been since my mom 1.5 years ago. Not sure about the body aches. I never get headaches, so I'm not sure. Make sure i'm on the right track with eating. check lab work, make sure all is well there No periods for seven months- new onset poor sleep, body aches, hot flashes Dry eyes, dry skin, dry mouth as of late, + raymarsha stewart wildrick- helped her process grief from multiple deaths in her family- Mom passed of cancer : [employer]: highly processed diet- Middle: Dental work HS: [employer] Lifestyle and Exposure History: Diet-tries to eliminate processed foods BM-bristol 4 daily- steve at times Sleep-6 hrs- - tired upon awakening Exercise-active- dancing/ walking/ gentle yoga Stress-working with a shaman which helps stress Relationships- good support system ONEL-0 Drugs/ETOH/tobacco- none 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 PHYSICAL EXAMINATION: General appearance: Well appearing, alert, in no acute distress, well-hydrated, well nourished. Skin: Skin color, texture, turgor normal, no suspicious rashes or lesions Head: Normocephalic, no masses, lesions, tenderness or abnormalities Eyes: Anicteric sclera. Lungs: Unlabored on room air Heart: Pulse WNL Osteopathic structural exam: OA compressed +TART changes in the cervical and thoracic regions C2 FRSL T7 ERSR PREVIOUS Functional Medicine Assessment/Plan Intestinal dysbiosis -GI effects reviewed -Labs reviewed -Add daily Digestive enzymes -Start the following regimen: Y formula , then biocidin, then, armra -Pt to provide supplement update via mYC Gastrointestinal food sensitivity -Continue holding reactive foods (Eggs, Barley, Beef) -Will consider reintroduction in the future -Cooked eggs okay Cervicalgia - CONSULT OSTEOPATHIC NEUROMUSCULOSKELETAL MEDICINE -Somatic dysfunction noted on osteopathic exam- -See Dr. Chelsea De Souza [facility] Low back pain without sciatica, unspecified back pain laterality, unspecified chronicity - CONSULT OSTEOPATHIC NEUROMUSCULOSKELETAL MEDICINE -OMT referral -Somatic dysfunction noted Sleep disturbance -Discussed strategies for sleep support -resourc (more content not included)... [facility]INEon 09-29-2017 HCG.beta subunit ( test) Ql (U) Negative Normal Negative [facility] Comment on above: Performed By: #### H CGU ####[id number] [facility] [address] [place] [address] Provider Note - EDon 018 Provider Note - ED Time Seen:? Time Seen 28-Sep-2017 23:34Triage Vital Signs:? Triage Information Most recent Vital Sign Value Date Temp (F): 37.1 09-28-2017 23:23 Heart Rate (beats/min): 97 09-28-2017 23:23 Respirations (breaths/min): 16 09-28-2017 23:23 SpO2 (%): 100 09-28-2017 23:23 BP Systolic (mm Hg): 108 09-28-2017 23:23 BP Diastolic (mm Hg): 61 09-28-2017 23:23History of Present Illness:/Lactating :? Are You no (1)? Are You Currently no (1)This 46 year old Female presents with complaint(s) of urinary tractinfection(1)? Historian patientHistory of Presenting Illness - Additional:? Complaint Dysuria or frequency for 1 dayHistory:History:? History Reviewed Past family history reviewed and unremarkable Pastsurgicalhistory reviewed and unremarkableAllergy, Intolerance, Adverse Event: Allergies:? Cipro: Drug, Rash, Hives/Urticaria, Itching, ActiveOutpatient Medication, Review/Add Medications:* Outpatient Medication Status not yet specifiedSocial History: denies smoking, alcohol and drug useHISTORY ATTESTATION:? Attestation I have reviewed and confirmed nurse's/medic's notes forpatient'smedications, allergies, medical history, and surgical historyVital Signs:? Objective Information T P R BP SpO2 O2(LPM) %FiO2 [id number] 23:23:00- 97 16 108/61 100 roomair, no respiratorysupportLab Results:? ResultsI have reviewed these laboratory results:Urinalysis 28-Sep-2017 23:34:00Result ValueColor, Urine SAUL Reference Range: STRAW,YELLOWAppearance, Urine HAZYSpecific [place], Urine 1.005pH, Urine 6.0Protein, Urine 100 (2+) AGlucose, Urine NEGATIVEBlood, Urine LARGE (3+) AKetones, Urine NEGATIVEBilirubin, Urine NEGATIVEUrobilinogen, Urine 4.0 HNitrite, Urine POSITIVE ALeukocyte Esterase, Urine SMALL (1+) APROGRESS NOTE:? ED Course:HPI:She came with history of dysuria and frequency started today with a mildbackache and suprapubic discomfort but no high fevers or chills and no nauseano vomiting and no flank pain. Past history of UTI. Does not smoke or drink.Not diabetic. Last period a few weeks ago. No significant family history.REVIEW OF SYSTEMS:GENERAL.: No fever,or weakness.EYES: No vision changes, double vision, drainage or eye pain.ENT: No sore throat, ear ache, sinus congestion.CARDIOPULMONARY : No chest pain, palpitations, syncope, near syncope. Noshortness of breath, cough, or hemoptysis.GI: No abdominal pain, no change in bowel habits, melena, hematemesis,hematochezia, nausea, vomiting,Mild backache and suprapubic discomfortGU: No genitourinary discharge,MS: No muscle pain, limb pain, joint pain or joint swelling.SKIN: No rashes or lesions.PSYCH: No depression, anxiety or other psychiatric complaints.Review of ALL OTHER systems is otherwise negative unless stated above or inhistory of present illness.I reviewed the social and family history and allergies.PHYSICAL EXAM:GENERAL: Vitals noted, no acute distress. Alert, awake and oriented x 3.Non-toxic. Not lethargic.EENT: TMs normal. Pharynx unremarkable.NECK: Supple. Nontender. No midline tenderness. No signs of meningism.CARDIAC: Regular, rate, rhythm. No murmurs, rubs or gallops. No JVDPULMONARY: Lungs clear bilaterally with good aeration. No wheezes, rales orrhonchi. No respiratory distress.ABDOMEN: Soft, Nontender. No acute tenderness, spasm, guarding or reboundtenderness. Bowel sounds normal. No pulsatile masses felt.Renal areas was not tender, suprapubic area not acutely tender.EXTREMITIES: No peripheral edema. Peripheral pulses normal. No signs of DVT.SKIN: No rashes or lesions.MUSCULOSKELETAL: All normal.VASCULAR: No aortic pulsations, peripheral pulses are equal and are normalbilaterally.NEURO: No focal neurologic deficits, NIH score of 0. Cranial nerves normal . Nofacial weakness. Reflexes are normal.MEDICAL DECISION MAKING:Treatment as advised for UTI with Macrobid and pyridium and follow-up with herPCP in 1-2 days and may return to ER if she has more severe back pain withfever or chills and nausea and vomiting and she agrees with the plan.Diagnoses/Visit Problems:? UTI (urinary tract infection):DISCHARGE DISPOSITION:? Disposition: discharged? Discharge Type: homeCONDITION ON DISPO:? Condition on Disposition stableMEDICATION RECONCILIATION/DISCHARGE MEDS:* Outpatient Medication Status not yet specifiedAttestation:CRITI MOE CARE:? Is This a Critically Ill Patient noElectronic Signatures:Amari Evans) (Signed 28-Sep-2017 23:51) Authored: Time Seen / ED Notes, Triage Vital Signs, History of PresentIllness, Patient History, History Attestation, Vital Signs, Lab Results Review,Progress Note, ED Disposition (REQUIRED), AttestationLast Updated: 28-Sep-2017 23:51 by Amari Evans)References:1. Data Referenced From Triage - ED 09/28/2017 11:23 PM Normal [facility] Triage - EDon 09-29-2017 Triage - ED Quick Triage:The pat ient and/or guardian verbally acknowledges placement for services intothe following (when Urgent Care Service hours are operating): urgent careservicesAre You noAre You Currently noPain:Pain Rating (0-10): Rest 6Pain Rating (0-10): Activity 8Chart Review: CHIEF COMPLAINTBRENDA TURNER is a Female patient with a chief complaint of urinary tractinfection.Onset of the Complaint: 28-Sep-2017 16:00Triage Date/Time: 28-Sep-2017 23:23Pain Rating (0-10): Rest: 6Pain Rating (0-10): Activity: 8Vital Signs:Temperature: 37.1F ( C) taken foreheadBlood Pressure: 108/61 Mean:Heart Rate: 97Respiratory Rate: 16Pulse Oximetry: 100% on room air, no respiratory support. Height: 5 feet 3.00inches. 160.0 CMWeight: 115.0 pounds. Calculated 52.1 kg. (stated)Calculated BMI (kg/m2): 20.351 Calculated BSA (m2) 1.52Cough lasting greater than 3 weeks: noTravel outside of [place]: noAllergies: yesMask applied: noLast menstrual period: [id number] has suicidal thoughts: noPatient has homicidal thoughts: noESI: 4Symptom Notes:.Symptoms Are POSITIVE For:chills and frequency.Symptoms Are Negative For:anorexia, dysuria, fever, flank pain, hematuria, malaise, nausea and urgency.PAINPain Scale Used: WILDAPast Medical History:? Past Medical History Reviewed yesElectronic Signatures:Davin Hogue (EMT-P) (Signed 28-Sep-2017 23:29) Authored: Triage, Past Medical HistoryAlex Okeefe (STAFF N) (Signed 28-Sep-2017 23:32) Authored: TriageLast Updated: 28-Sep-2017 23:32 by Alex Okeefe (STAFF N) Normal [facility] UA MICROSCOPICon 09-29-2017 Erythrocytes (RBC) 10*6/uL Invalid Interpretation Code 0-[address] [facility] Comment on above: Performed By: #### U AMIC ####[id number] [place] [id number] Urine, bacteria in sediment 2+ /HPF Invalid Interpretation Code [facility] Comment on above: Performed By: #### U AMIC ####[id number] [place] [address]40 WBC (Leukocytes) MODERATE Normal [facility] Comment on above: Performed By: #### U AMIC ####[id number] [address] [place] [address] 76706 WBC (Leukocytes) 10*3/uL Invalid Interpretation Code 0-[address] [facility] Comment on above: Performed By: #### U AMIC ####[id number] [address] [place] [address] 20701 URINALYSISon 09-29-2017 Urine, leukocyte esterase presence LARGE (3+) Invalid Interpretation Code NEGATIVE [facility] Comment on above: Result Comment: This is a corrected result. Previous value was SMALL (1+), verified at09/28/2017 23:46 Performed By: #### U A ####[id number] [place] [address] 50216 Bilirubin (total) Negative Normal NEGATIVE [facility] Comment on above: Performed By: #### U A ####[id number] [place] [address] 94642 BLOOD LARGE (3+) Invalid Interpretation Code NEGATIVE [facility] Comment on above: Performed By: #### U A ####[id number] [place] [address] 89003 Glucose mass conc Negative Normal NEGATIVE [facility] Comment on above: Performed By: #### U A ####[id number] [address] [place] [address] 10541 pH of blood 6.0 [pH] Normal 5.0 - 8.[address] [facility] Comment on above: Performed By: #### U A ####[id number] [place] [address] 22647 Protein 100 (2+) Invalid Interpretation Code NEGATIVE [facility] Comment on above: Performed By: #### U A ####[id number] [place] [address] 88738 Urine, appearance HAZY Normal CLEAR [facility] Comment on above: Performed By: #### U A ####[id number] [place] [address] 22247 Urine, color SAUL Normal STRAW,YELLOW [facility] Comment on above: Performed By: #### U A ####[id number] [place], [place] [address], [place] [address] Urine, ketones presence Negative Normal NEGATIVE [facility] Comment on above: Performed By: #### U A ####[id number] [place] [address] 87982 Urine, nitrite presence Positive Invalid Interpretation Code NEGATIVE [facility] Comment on above: Performed By: #### U A ####[id number] [address] [address] Urine, specific gravity 1.005 Normal 1.005 - 1.035 [facility] Comment on above: Performed By: #### U A ####[id number] [facility] [address] [place] [address] 49707 Urine, urobilinogen 4.0 mg/dL High 0.0 - 1.[address] [facility] Comment on above: Result Comment: SOME PIGMENTS AND MEDICATIONS MAY CAUSE AFALSE POSITIVE UROBILINOGEN Performed By: #### U A ####[id number] [address] [address] URINE CULTURE,BACTERIALon URINE CULTURE,BACTERIAL PATIENT: BRENDA TURNER LOCATION: [facility]#: [id number] : 74 AGE: SEX: F ORDERED BY: LAWRENCE EVANS: URINE COLLECTED: 09/28/17 23:34ANTIBIOTICS AT DARION.: RECEIVED : 09/29/17 13:19SITE: Clean Catch/Voided R E S U L T S URINE CULTURE,BACTERIAL FINAL 10/01/17 09:12 ISOLATE1 : Escherichia coli >100,000 CFU/ML Organism E coli Antibiotic BP INTRP [place] in R Amox/Clavulanate S Cefazolin S Ciprofloxacin S Nitrofurantoin S Gentamicin S Levofloxacin S Piperc/Tazobact S Trimeth/Sulfa R Tetracycline S S=SUSCEPTIBLE I=INTERMEDIATE R=RESISTANT SDD=SUSCEPTIBLE DOSE DEPENDENT NS=NONSUSCEPTIBLEX=REPORTE D IN ERROR Normal [facility] Comment on above: Performed By: #### U [facility] ####[id number] [address] Vital Signs Date Time Vital Sign Value Performing Clinician Ti winn 08-21-2023 09:48-0400 Body height 160 cm Irena Damon APRN.CNP Work Phone: [facility] 08-21-2023 09:48-0400 Body weight 53.07 kg Irena Damon APRN.PICK UP OPERATOR Work Phone: [facility] 06-24-2022 09:09-0500 Body height 160 cm Amrien Ghouse DO Work Phone: [facility] 06-24-2022 09:09-0500 Body weight 53.07 kg Amrien Ghouse DO Work Phone: [facility] 06-24-2022 09:09-0500 Diastolic blood pressure 76 mm[Hg] Amrien Ghouse DO Work Phone: [facility] 06-24-2022 09:09-0500 Heart rate 94 /min Amrien Ghouse DO Work Phone: [facility] 06-24-2022 09:09-0500 Systolic blood pressure 109 mm[Hg] [facility] Work Phone: [facility] Encounters Encounter Date Encounter Type Care Provider Facility Start: 09-02-2024 End: 09-03-2024 ambulatory Irena Damon APRN.PICK UP OPERATOR Work Phone: [facility] Comment on above: PCP CONTACT INFORMAT ION Start: 06-24-2024 Encounter for genera l adult medical examination without abnormal findings Stacia Nieves PUBLIC AFFAIRS SPECIALIST [facility] Start: 06-22-2024 End: 06-22-2024 ambulatory Stacia Maximiliano PUBLIC AFFAIRS SPECIALIST Facility:[facility] Start: 05-30-2024 ambulatory STACIA Angelica NIEVES Facil ity:[facility] Start: 05-30-2024 End: 05-30-2024 Subsequent hospital visit by physician [facility] 1 Work Phone: Radiology Comment on above: Headache [R51] Start: 05-20-2024 End: 05-20-2024 ambulatory Stacia Nieves PUBLIC AFFAIRS SPECIALIST Facility:[facility] Start: 12-31-2023 End: 12-31-2023 ambulatory Irena Damon ROOM INSPECTOR.PICK UP OPERATOR Work Phone: Functional Medicine Comment on above: Perimenopause (Prima ry Dx) Start: 12-31-2023 End: 12-31-2023 Telemedicine consultation with patient Irena Damon APRN.PICK UP OPERATOR Work Phone: [facility] Start: 11-21-2023 Documentation procedure Mammog francia Coordinator [facility] ANCILLARY AREA NOT LISTED Start: 11-21-2023 Letter encounter Mammography Coordinator [facility] ANCILLARY AREA NOT LISTED Start: 11-20-2023 ambulatory Facility:[facility] Start: 11-20-2023 End: 11-20-2023 Subsequent hospital visit by physician Mammo/Bone Density [facility] Comment on above: Encounter for screen ing mammogram for malignant neoplasm of breast [Z12.31] Start: 10-10-2023 ambulatory Irena Damon APRN.PICK UP OPERATOR Work Phone: Functional Medicine Start: 10-10-2023 Patient encounter procedure Irena Damon APRN.PICK UP OPERATOR Work Phone: Functional Medicine Comment on above: Mammogram referral Start: 09-30-2023 End: 09-30-2023 ambulatory IRENA DAMON Facility:[facility] Start: 08-21-2023 End: 08-21-2023 ambulatory Irena Damon APRN.PICK UP OPERATOR Work Phone: Functional Medicine Comment on above: Perimenopause (Prima ry Dx); Poor sleep Start: 08-21-2023 End: 08-21-2023 Telemedicine consultation with patient Irena Damon APRN.PICK UP OPERATOR Work Phone: [facility] Start: 01-13-2023 End: 01-13-2023 ambulatory ALICIA HART Facility:[facility] Start: 11-28-2022 ambulatory Johann Celestin DO Work Phone: Functional Medicine Comment on above: Cannot reply to mess ages Start: 09-26-2022 End: 09-26-2022 ambulatory [facility] ED [facility] Start: 09-26-2022 End: 09-26-2022 [facility]HC visit, estab pt [facility] Comment on above: Established Patient Start: 09-16-2022 ambulatory Johann Celestin DO Work Phone: Functional Medicine Comment on above: avs Start: 09-16-2022 E-mail encounter fro m caregiver Mellmele Celestin DO Work Phone: [facility] Start: 08-27-2022 End: 08-27-2022 ambulatory [facility] ED [facility] Start: 08-27-2022 End: 08-27-2022 FQHC visit, estab pt [facility] Comment on above: Established Patient Start: 06-24-2022 End: 06-24-[address] Work Phone: [facility] Start: 06-24-2022 End: 06-24-2022 [facility] visit new patient Claudine Espitia RD Work Phone: Functional Medicine Comment on above: New Patient Start: 06-24-2022 End: 06-24-2022 Patient encounter procedure Johann Celestin DO Work Phone: Functional Medicine Comment on above: Arthralgia, unspecif ied joint (Primary Dx); Sleep disturbance; Myalgias; Hot flushes, perimenopausal; Myalgia; Raynaud's disease without gangrene; Deficiency of nutrient element, unspecified; Other malaise; Gastrointestinal food sensitivity; Multiple food allergies; Chronic fatigue; Mold exposure Start: 09-29-2017 End: 09-29-2017 Ambulatory Amari Evans Facility:[facility] Plan of Treatment Date Care Activity Detail Author Start: 11-19-2024 Screening for malignant neoplasm of breast Mammogram Screening [facility] Start: 10-21-2024 End: 10-21-2024 Patient encounter procedure 10/21/2024 4:00 PM EDT Office Visit Functional Medicine [address] [address] Heide Husain APRN.PICK UP OPERATOR [address] [address] new to provider Functional Medicine Comment on above: new to provider Start: 02-01-2024 Covid-19 Vaccine () Covid-19 Vaccine () [facility] Start: 02-01-2024 Influenza vaccination [facility] Start: 08-21-2023 End: 11-20-2023 BIOAVAIL TESTO/SHBG, FEM & CHILD BIOAVAIL TESTO/SHBG, FEM & CHILD Lab Routine Perimenopause Expected: 08/21/2023, Expires: 11/20/2023 [facility] Work Phone: Comment on above: Expected: 08/21/2023, Expires: 4 Start: 08-21-2023 End: 11-20-2023 DHEA-S BLD DHEA-S BLD Lab Routine Perimenopause Expected: 08/21/2023, Expires: 11/20/2023 [facility] Work Phone: Comment on above: Expected: 08/21/2023, Expires: 4 Start: 08-21-2023 End: 11-20-2023 ESTROGEN FRACTION BL ESTROGEN FRACTION BL Lab Routine Perimenopause Expected: 08/21/2023, Expires: 11/20/2023 [facility] Work Phone: Comment on above: Expected: 08/21/2023, Expires: 4 Start: 08-21-2023 End: 11-20-2023 Follitropin [Units/volume] in Serum or Plasma FSH BLD Lab Routine Perimenopause Expected: 08/21/2023, Expires: 11/20/2023 [facility] Work Phone: Comment on above: Expected: 08/21/2023, Expires: 4 Start: 08-21-2023 End: 11-20-2023 Lutropin [Units/volume] in Serum or Plasma LUTEINIZING HORMONE Lab Routine Perimenopause Expected: 08/21/2023, Expires: 11/20/2023 [facility] Work Phone: Comment on above: Expected: 08/21/2023, Expires: Start: 08-21-2023 End: 11-20-2023 Progesterone [Mass/volume] in Serum or Plasma PROGESTERONE BLD Lab Routine Perimenopause Expected: 08/21/2023, Expires: 11/20/2023 [facility] Work Phone: Comment on above: Expected: 08/21/2023, Expires: 4 Start: 08-21-2023 End: 11-20-2023 Sex hormone binding globulin [Moles/volume] in Serum or Plasma SEX-HORMONE BINDING Lab Routine Perimenopause Expected: 08/21/2023, Expires: 11/20/2023 [facility] Work Phone: Comment on above: Expected: 08/21/2023, Expires: 4 Start: 06-02-2023 Behavioral Health Screening Behavioral Health Screening [facility] Start: 06-02-2023 Depression Assessment Depression Assessment [facility] Start: 01-31-2023 Covid-19 Vaccine ( season) Covid-19 Vaccine () [facility] Start: 01-31-2023 Influenza vaccination [facility] Start: 2022 Pneumococcal Vaccine: 50+ (1 of 1 - PCV) Pneumococcal Vaccine: 50+ (1 of 1 - PCV) [facility] Start: 2022 SHINGRIX VACCINE (1 of 2) SHINGRIX VACCINE (1 of 2) [facility] Start: 06-24-2022 End: 08-24-2022 25-hydroxyvitamin D3 [Mass/volume] in Serum or Plasma VITAMIN D 25 HYDROXY Lab Routine Arthralgia, unspecified joint Sleep disturbance Myalgias Hot flushes, perimenopausal Myalgia Raynaud's disease without gangrene Deficiency of nutrient element, unspecified Other malaise Gastrointestinal food sensitivity Multiple food allergies Chronic fatigue Mold exposure Expected: 06/24/2022, Expires: 08/24/2022 [facility] Work Phone: Comment on above: Expected: 06/24/2022, Expires: 3 Start: 06-24-2022 End: 08-24-2022 ALLERGY FOOD PANEL IGG ALLERGY FOOD PANEL IGG Lab Routine Arthralgia, unspecified joint Sleep disturbance Myalgias Hot flushes, perimenopausal Myalgia Raynaud's disease without gangrene Deficiency of nutrient element, unspecified Other malaise Gastrointestinal food sensitivity Multiple food allergies Chronic fatigue Mold exposure Expected: 06/24/2022, Expires: 08/24/2022 [facility] Work Phone: Comment on above: Expected: 06/24/2022, Expires: 3 Start: 06-24-2022 End: 08-24-2022 GENE BY IFA WITH REFLEX GENE BY IFA WITH REFLEX Lab Routine Arthralgia, unspecified joint Sleep disturbance Myalgias Hot flushes, perimenopausal Myalgia Raynaud's disease without gangrene Deficiency of nutrient element, unspecified Other malaise Gastrointestinal food sensitivity Multiple food allergies Chronic fatigue Mold exposure Expected: 06/24/2022, Expires: 08/24/2022 [facility] Work Phone: Comment on above: Expected: 06/24/2022, Expires: 3 Start: 06-24-2022 End: 08-24-2022 C reactive protein [Mass/volume] in Serum or Plasma by High sensitivity method C-REACTIVE ULTRA SEN Lab Routine Arthralgia, unspecified joint Sleep disturbance Myalgias Hot flushes, perimenopausal Myalgia Raynaud's disease without gangrene Deficiency of nutrient element, unspecified Other malaise Gastrointestinal food sensitivity Multiple food allergies Chronic fatigue Mold exposure Expected: 06/24/2022, Expires: 08/24/2022 [facility] Work Phone: Comment on above: Expected: 06/24/2022, Expires: 3 Start: 06-24-2022 End: 08-24-2022 CELIAC ASSOC HLA-DQ GENOTYPE CELIAC ASSOC HLA-DQ GENOTYPE Lab Routine Arthralgia, unspecified joint Sleep disturbance Myalgias Hot flushes, perimenopausal Myalgia Raynaud's disease without gangrene Deficiency of nutrient element, unspecified Other malaise Gastrointestinal food sensitivity Multiple food allergies Chronic fatigue Mold exposure Expected: 06/24/2022, Expires: 08/24/2022 [facility] Work Phone: Comment on above: Expected: 06/24/2022, Expires: 3 Start: 06-24-2022 End: 08-24-2022 Cobalamin (Vitamin B12) [Mass/volume] in Serum or Plasma VITAMIN B12 BLOOD Lab Routine Arthralgia, unspecified joint Sleep disturbance Myalgias Hot flushes, perimenopausal Myalgia Raynaud's disease without gangrene Deficiency of nutrient element, unspecified Other malaise Gastrointestinal food sensitivity Multiple food allergies Chronic fatigue Mold exposure Expected: 06/24/2022, Expires: 08/24/2022 [facility] Work Phone: Comment on above: Expected: 06/24/2022, Expires: 3 Start: 06-24-2022 End: 06-24-2023 COMPLEMENT COMPONENT 4A COMPLEMENT COMPONENT 4A Lab Routine Arthralgia, unspecified joint Sleep disturbance Myalgias Hot flushes, perimenopausal Myalgia Raynaud's disease without gangrene Deficiency of nutrient element, unspecified Other malaise Gastrointestinal food sensitivity Multiple food allergies Chronic fatigue Mold exposure Expected: 06/24/2022, Expires: 06/24/2023 [facility] Work Phone: Comment on above: Expected: 06/24/2022, Expires: 4 Start: 06-24-2022 End: 08-24-2022 COPPER BLOOD COPPER BLOOD Lab Routine Arthralgia, unspecified joint Sleep disturbance Myalgias Hot flushes, perimenopausal Myalgia Raynaud's disease without gangrene Deficiency of nutrient element, unspecified Other malaise Gastrointestinal food sensitivity Multiple food allergies Chronic fatigue Mold exposure Expected: 06/24/2022, Expires: 08/24/2022 [facility] Work Phone: Comment on above: Expected: 06/24/2022, Expires: 3 Start: 06-24-2022 End: 08-24-2022 Ferritin [Mass/volume] in Serum or Plasma FERRITIN BLD Lab Routine Arthralgia, unspecified joint Sleep disturbance Myalgias Hot flushes, perimenopausal Myalgia Raynaud's disease without gangrene Deficiency of nutrient element, unspecified Other malaise Gastrointestinal food sensitivity Multiple food allergies Chronic fatigue Mold exposure Expected: 06/24/2022, Expires: 08/24/2022 [facility] Work Phone: Comment on above: Expected: 06/24/2022, Expires: 3 Start: 06-24-2022 End: 08-24-2022 Homocysteine [Moles/volume] in Serum or Plasma HOMOCYSTEINE Lab Routine Arthralgia, unspecified joint Sleep disturbance Myalgias Hot flushes, perimenopausal Myalgia Raynaud's disease without gangrene Deficiency of nutrient element, unspecified Other malaise Gastrointestinal food sensitivity Multiple food allergies Chronic fatigue Mold exposure Expected: 06/24/2022, Expires: 08/24/2022 [facility] Work Phone: Comment on above: Expected: 06/24/2022, Expires: 3 Start: 06-24-2022 End: 08-24-2022 Iron and Iron binding capacity panel - Serum or Plasma IRON + TIBC Lab Routine Arthralgia, unspecified joint Sleep disturbance Myalgias Hot flushes, perimenopausal Myalgia Raynaud's disease without gangrene Deficiency of nutrient element, unspecified Other malaise Gastrointestinal food sensitivity Multiple food allergies Chronic fatigue Mold exposure Expected: 06/24/2022, Expires: 08/24/2022 [facility] Work Phone: Comment on above: Expected: 06/24/2022, Expires: 3 Start: 06-24-2022 End: 08-24-2022 MAGNESIUM RBC MAGNESIUM RBC Lab Routine Arthralgia, unspecified joint Sleep disturbance Myalgias Hot flushes, perimenopausal Myalgia Raynaud's disease without gangrene Deficiency of nutrient element, unspecified Other malaise Gastrointestinal food sensitivity Multiple food allergies Chronic fatigue Mold exposure Expected: 06/24/2022, Expires: 08/24/2022 [facility] Work Phone: Comment on above: Expected: 06/24/2022, Expires: 3 Start: 06-24-2022 End: 08-24-2022 Methylmalonate [Moles/volume] in Serum or Plasma METHYLMALONIC ACID Lab Routine Arthralgia, unspecified joint Sleep disturbance Myalgias Hot flushes, perimenopausal Myalgia Raynaud's disease without gangrene Deficiency of nutrient element, unspecified Other malaise Gastrointestinal food sensitivity Multiple food allergies Chronic fatigue Mold exposure Expected: 06/24/2022, Expires: 08/24/2022 [facility] Work Phone: Comment on above: Expected: 06/24/2022, Expires: 3 Start: 06-24-2022 End: 08-24-2022 Thyroglobulin Ab [Units/volume] in Serum or Plasma THYROGLOBULIN AB Lab Routine Arthralgia, unspecified joint Sleep disturbance Myalgias Hot flushes, perimenopausal Myalgia Raynaud's disease without gangrene Deficiency of nutrient element, unspecified Other malaise Gastrointestinal food sensitivity Multiple food allergies Chronic fatigue Mold exposure Expected: 06/24/2022, Expires: 08/24/2022 [facility] Work Phone: Comment on above: Expected: 06/24/2022, Expires: 3 Start: 06-24-2022 End: 08-24-2022 THYROID PEROXIDASE ANTIBODY BLOOD THYROID PEROXIDASE ANTIBODY BLOOD Lab Routine Arthralgia, unspecified joint Sleep disturbance Myalgias Hot flushes, perimenopausal Myalgia Raynaud's disease without gangrene Deficiency of nutrient element, unspecified Other malaise Gastrointestinal food sensitivity Multiple food allergies Chronic fatigue Mold exposure Expected: 06/24/2022, Expires: 08/24/2022 [facility] Work Phone: Comment on above: Expected: 06/24/2022, Expires: Start: 06-24-2022 End: 08-24-2022 Thyrotropin [Units/volume] in Serum or Plasma TSH BLD Lab Routine Arthralgia, unspecified joint Sleep disturbance Myalgias Hot flushes, perimenopausal Myalgia Raynaud's disease without gangrene Deficiency of nutrient element, unspecified Other malaise Gastrointestinal food sensitivity Multiple food allergies Chronic fatigue Mold exposure Expected: 06/24/2022, Expires: 08/24/2022 [facility] Work Phone: Comment on above: Expected: 06/24/2022, Expires: Start: 06-24-2022 End: 08-24-2022 Thyroxine (T4) free [Mass/volume] in Serum or Plasma T4 FREE/FREE THYROX Lab Routine Arthralgia, unspecified joint Sleep disturbance Myalgias Hot flushes, perimenopausal Myalgia Raynaud's disease without gangrene Deficiency of nutrient element, unspecified Other malaise Gastrointestinal food sensitivity Multiple food allergies Chronic fatigue Mold exposure Expected: 06/24/2022, Expires: 08/24/2022 [facility] Work Phone: Comment on above: Expected: 06/24/2022, Expires: 3 Start: 06-24-2022 End: 08-24-2022 Tissue transglutaminase IgA Ab [Units/volume] in Serum TRANSGLUTAMINASE IGA Lab Routine Arthralgia, unspecified joint Sleep disturbance Myalgias Hot flushes, perimenopausal Myalgia Raynaud's disease without gangrene Deficiency of nutrient element, unspecified Other malaise Gastrointestinal food sensitivity Multiple food allergies Chronic fatigue Mold exposure Expected: 06/24/2022, Expires: 08/24/2022 [facility] Work Phone: Comment on above: Expected: 06/24/2022, Expires: 3 Start: 06-24-2022 End: 08-24-2022 Tissue transglutaminase IgG Ab [Units/volume] in Serum TRANSGLUTAMINASE IGG Lab Routine Arthralgia, unspecified joint Sleep disturbance Myalgias Hot flushes, perimenopausal Myalgia Raynaud's disease without gangrene Deficiency of nutrient element, unspecified Other malaise Gastrointestinal food sensitivity Multiple food allergies Chronic fatigue Mold exposure Expected: 06/24/2022, Expires: 08/24/2022 [facility] Work Phone: Comment on above: Expected: 06/24/2022, Expires: 3 Start: 06-24-2022 End: 08-24-2022 Triiodothyronine (T3) Free [Mass/volume] in Serum or Plasma T3 FREE BLD Lab Routine Arthralgia, unspecified joint Sleep disturbance Myalgias Hot flushes, perimenopausal Myalgia Raynaud's disease without gangrene Deficiency of nutrient element, unspecified Other malaise Gastrointestinal food sensitivity Multiple food allergies Chronic fatigue Mold exposure Expected: 06/24/2022, Expires: 08/24/2022 [facility] Work Phone: Comment on above: Expected: 06/24/2022, Expires: 3 Start: 06-24-2022 End: 08-24-2022 Zinc [Mass/volume] in Serum or Plasma ZINC BLD Lab Routine Arthralgia, unspecified joint Sleep disturbance Myalgias Hot flushes, perimenopausal Myalgia Raynaud's disease without gangrene Deficiency of nutrient element, unspecified Other malaise Gastrointestinal food sensitivity Multiple food allergies Chronic fatigue Mold exposure Expected: 06/24/2022, Expires: 08/24/2022 [facility] Work Phone: Comment on above: Expected: 06/24/2022, Expires: 3 Start: 06-02-2022 DEPRESSION ASSESSMENT DEPRESSION ASSESSMENT [facility] Start: 01-31-2022 Influenza vaccination INFLUENZA (#1) [facility] Start: 2017 COLOGUARD (FIT-DNA) COLOGUARD (FIT-DNA) [facility] Start: 2017 Colonoscopy COLONOSCOPY [facility] Start: 2017 COLORECTAL CANCER SCREENING COLORECTAL CANCER SCREENING [facility] Start: [address] COLONOGRAPHY [facility] Start: 2017 DIABETES SCREEN DIABETES SCREEN [facility] Start: 2017 Diabetes Screening Diabetes Screening [facility] Start: 2017 FECAL OCCULT BLOOD FECAL OCCULT BLOOD [facility] Start: 2017 Lipid panel Lipid Screening [facility] Start: 2017 LIPID SCREEN LIPID SCREEN [facility] Start: 2017 Screening for malignant neoplasm of colon [facility] Start: 2017 SIGMOIDOSCOPY SIGMOIDOSCOPY [facility] Start: 2012 Mammography MAMMOGRAM [facility] Start: 2012 Screening for malignant neoplasm of breast Mammogram Screening [facility] Start: 2002 HPV TESTING HPV TESTING [facility] Start: 2002 Screening for malignant neoplasm of cervix HPV Testing [facility] Start: 1993 PAP TESTING PAP TESTING [facility] Start: 1993 Screening for malignant neoplasm of cervix [facility] Start: 11-19-1991 Hepatitis B Vaccine (1 of 3 - 19+ 3-dose series) Hepatitis B Vaccine (1 of 3 - + 3-dose series) [facility] Start: 11-19-1991 Urine microalbumin profile [facility] Start: 1990 Anxiety Screening Anxiety Screening [facility] Start: 1990 Depression Screening Depression Screening [facility] Start: 1990 HEPATITIS C SCREENING HEPATITIS C SCREENING [facility] Start: 1990 Hepatitis C screening Hepatitis C Screening [facility] Start: 1990 HIV SCREENING HIV SCREENING [facility] Start: 1990 HIV screening HIV Screening [facility] Start: 05-20-1973 COVID-19 VACCINE (#1) COVID-19 VACCINE (#1) [facility] Start: 1972 HEPATITIS B (1 of 3 - 3-dose series) HEPATITIS B (1 of 3 - 3-dose series) [facility] FM GI EFFECTS, 3 STO OL SPECIMENS FM GI EFFECTS, 3 STOOL SPECIMENS Lab Routine Arthralgia, unspecified joint Sleep disturbance Myalgias Hot flushes, perimenopausal Myalgia Raynaud's disease without gangrene Deficiency of nutrient element, unspecified Other malaise Gastrointestinal food sensitivity Multiple food allergies Chronic fatigue Mold exposure Ordered: 06/24/2022 [facility] Work Phone: Comment on above: Ordered: 06/24/2022 [facility] Payers Date Payer Category Payer Self-pay 2024 Unknown [id number] 2024 Private Health Insurance [id number] 2021 Private Health Insurance [id number] 2021 Unknown [id number] Self-pay [id number] Unknown [id number] Unknown [id number] Social History Date Type Detail Facility Tobacco smoking stat [facility] Tobacco smoking consumption unknown [facility] Work Phone: Start: 1970 Sex Assigned At Not on file [facility] Start: 06-18-2022 End: 01-13-2023 History of Social function [facility] Start: 06-18-2022 End: 01-13-2023 Patient Health Questionnaire 2 item (PHQ-2) [Reported] [facility] Adult Depression Screening Assessment 0 [facility] Start: 07-01-2024 Gender identity Identifies as female gender (finding) [facility] Clinical Notes 06-24-2022 to 05-30-2024 Maria T Encarnacion, RT(R) - 05/30/2024 9:00 AM ESTPatient InstructionsIrena Damon APRN.PICK UP OPERATOR - 12/31/2023 3:00 PM Darlin - Kristy, Mammography - 11/21/2023 8:26 AM EDTPatient Instructions Note Date & Type Note Facility 05-30-2024 History of Present illness Narrative Radiology Service Progress Note PATIENT NAME: Brenda Turner DATE OF SERVICE: May 30, 2024 TIME: 9:02 AM PATIENT IDENTITY VERIFICATION COMPLETED USING TWO (2) IDENTIFIERS: Name and Date of confirmed by patient verbally. FALL SCREENING: Has the patient had 2 falls in the last year or 1 fall with injury or currently using an Ambulatory Assistive Device (Walker, Cane, Wheelchair, Crutches, etc.)? No PATIENT GENDER DATA: Female. status: Unknown status: NO. PATIENT RELEVANT IMPLANT DATA REVIEWED: Yes PATIENT PRESENTS WITH AN IMPLANTABLE OR ATTACHED WOOL GROWER: No RADIOLOGY DEPARTMENT: Ultrasound PERIPHERAL IV DATA: Not applicable SIGNED BY: RT Nayla(R) May 30, 2024 9:02 AM documented in this encounter [facility] 05-30-2024 Note HNO ID: [id number] Author: MARIA T ENCARNACION RT (R) Service: Radiology Author Type: Technologist Type: Progress Notes Filed: 05/30/2024 09:02 Note Text: Radiology Service Progress Note PATIENT NAME: Brenda Turner DATE OF SERVICE: May 30, 2024 TIME: 9:02 AM PATIENT IDENTITY VERIFICATION COMPLETED USING TWO (2) IDENTIFIERS: Name and Date of confirmed by patient verbally. FALL SCREENING: Has the patient had 2 falls in the last year or 1 fall with injury or currently using an Ambulatory Assistive Device (Walker, Cane, Wheelchair, Crutches, etc.)? No PATIENT GENDER DATA: Female. status: Unknown status: NO. PATIENT RELEVANT IMPLANT DATA REVIEWED: Yes PATIENT PRESENTS WITH AN IMPLANTABLE OR ATTACHED WOOL GROWER: No RADIOLOGY DEPARTMENT: Ultrasound PERIPHERAL IV DATA: Not applicable SIGNED BY: RT Nayla(R) May 30, 2024 9:02 AM [facility] 12-31-2023 Instructions Irena Damon APRN.[facility] - 12/31/2023 3:32 PM EDT Plan and Lifestyle Prescription Plan/Instructions/Resources: Reviewed labs and plan with patient. Discussed opportunities to communicate with myself and team if needed before next appointment, ie, MyChart, telephone, virtual visits. Continue current supplements May stop the Armra Follow up with medical collections for support with avoiding sugar PCP's that are familiar and supportive of Functional Medicine: Dr. Eliseo Lambert - [facility] Dr. Micah Perkins MD - [place] Dr. Janett Chavez D.O., family medicine - [facility] Book - Estrogen Matters - by Dr. Delia Bermudez and Dr. Daniella Queen Medications/Supplements Recommended: No orders of the defined types were placed in this encounter. I recommend the supplements from the [facility] [employer] Living Store Online Store at [email or web address] as we have thoroughly evaluated the research and use only highest quality supplements. Please use code: [email or web address] Future Plans: Follow up: Please schedule a follow up visit with the following Caregivers: Provider: 6 months LIFESTYLE PRESCRIPTION Functional Nutrition: Per chiseler head Sleep: Sleep goal for most adults is a minimum of 7-9 hours nightly. Exercise Prescription: Numerous studies confirm the benefits of regular moderate aerobic exercise (walking, swimming, elliptical machine, cycling, etc.) for 30 min 5 days per week (150 min goal). Stress Management: 1) Please look into this Heart Rate Variability BioFeedback Tool (www.heartmath.org). 2) A regular, daily meditation practice of at least 15-20 minutes will change your brain--as well as your genes! Behavioral Health Therapist: If I recommended counseling or individual therapy, please schedule an individual appointment with our Functional Medicine Behavioral Health Therapist after your visit today. The Behavioral Health Therapist helps patients identify and understand feelings and behaviors, experience the process of making positive change, and gain healthy coping skills. Health Coaching: Please consider scheduling with our [place] [facility] health coaches for a phone or virtual visit for accountability, goal setting and help with behavior shredding machine knife changer the next 6-8 weeks to be successful with your goals. [phone]. Smart phone apps to begin a meditative practice: Headspace (free for first 10 days) Insight Meditation Timer- (Free)-Great all-around marcellus to use for guided meditations of many different types and lengths or just to use as a tool to time and track your meditation practice. This is my absolute favorite! Calm- (Free) Walking Meditations-($1.99)- Get your walk AND meditation done together. A good way to start out for individuals who feel they just can't sit still to begin a meditative practice. During the next 6-8 weeks you'll be working on your diet plan discussed with our chiseler head, allowing for gentle detoxification and decreasing inflammation - while we are gathering your lab results and combining those with your complete history to formulate a very personalized treatment plan. LAB results: Due to the complexity of the testing performed, we are not able to review labs via MyChart or over the phone, but please know, if any of your labs are critical we will contact you. Otherwise, we will review all your labs at your next visit. We will go over a lot of information during your follow up visit - so please be well-rested and you may want to bring someone with you, if possible. Also make sure to schedule with the chiseler head (this will not happen automatically) as you did with your first visit so that she can review nutritional aspects of your treatment plan. By your 3rd visit, as things are improving, we will likely transition you to one of our very capable Certified Nurse Practitioners/Physician Assistants for further follow-up. Potential future labs: Any [facility] labs ordered take about 4 weeks to return. Do them as soon as possible so that we have the results before your next appointment. You can access them on the [facility] website and it can be beneficial if you review them prior to your next visit. [email or web address]. Read about NutrEval if this was ordered. *Irena Damon APRN.PICK UP OPERATOR documented in this encounter [facility] 12-31-2023 History of Present illness Narrative Follow-up Visit - virtual I have communicated my name and active licensure. The patient's identity and physical location were verified at the time of this visit. Either the patient or their legal field service representative has been informed of the risks and benefits of -- and alternatives to -- treatment through a remote evaluation and consents to proceed with the evaluation remotely. Patient: Brenda Turner There is no height or weight on file to calculate BMI. RMR can't be calculated - Weight unrecorded in last 120 days. Waist measurement: No waist measurement recorded. BP: ALLERGIES No Known Allergies Current Outpatient Medications on File Prior to Visit Medication Sig OTC NUTRITIONAL SUPPLEMENT Take 1 Scoop by mouth once daily. Armra powder Magnesium Glycinate 120mg (Pure Encapsulations) Take 2 capsules before bed Cortisol Locomotive Engineer Diesel 90 ct. ([employer]) Take one tablet at bedtime. No current facility-administered medications on file prior to visit. No past medical history on file. No past surgical history on file. Functional Medicine Timeline MSQ: Patient Entered Questionnaire PROMIS Scale T-Scores -- HIGHER SCORES BETTER 01/13/2023 08/21/2023 12/31/2023 PROMIS Global Health - (T-Scores - the mean of general population = 50. Five points is a clinically meaningful difference.) Physical T-Score 54.1 57.7 50.8 Mental T-Score 56 67.6 56 Depression Screenin06/18/2022 PHQ-9 Score 3 06/18/2022 PHQ-9 Self Harm Question 9 Not at all PHQ-9 Self-Harm (Item 9) response options: 0 Not at all 1 Several days 2 More than half the days 3 Nearly every day PHQ-9 Levels: 0-4 Minimal depression 5-9 Mild depression 10-14 Moderate depression 15-19 Moderately severe depression 20-27 Severe depression December 31, 2023 Irena Damon APRN.PICK UP OPERATOR Subjective: Goals: Review labs Hx of dysbiosis, menopause, bilateral arm numbness - referred to OMT Tried progesterone cream. Decided to stick with motherwort instead. Working with ayurvedic provider - no hot flashes. Tried magnesium - sleep is better. Cortisol account manager helps with stress. Sleeps 6 hours - watches too much TV. Goes to bed at midnight. Stress is more manageable. Exercise - walks, yoga, salsa dance, wt lifting Diet - GF, whole foods, eating more sugar BM - daily, formed Supplements - Armra (immune supplement), magnesium August 21, 2023 Irena Damon APRN.PICK UP OPERATOR Subjective: Goals: Wants blood work since hasn't had it in a year When lying down has pressure in LUQ and can radiate to scapula. Seems to have improved when stopping pineapple Last seen 12/[address] Hart. Patient is new to me today. Hx of dysbiosis, menopause, bilateral arm numbness - referred to OMT Has more gas with beans and some raw vegetables. Bilateral arm numbness resolved. Did have 1 OMT appt LMP 03/2023. Hot flashes and night sweats managed well with motherwort Had tried LDN for sleep but didn't like it. Sleep - having trouble staying asleep Stress is high Exercise - walks, yoga, salsa dance, wt lifting Diet - avoids sugar, GF, whole foods BM - daily, formed Supplements - Armra (immune supplement), motherwort Subjective: 01/13/23 Dr. Alicia Hart 52 yo female pt with history of dysbiosis Pt previously saw Dr Celestin and is new to me today Energy is good, does get a dip in the afternoon, will drink tea Normal bowels 95% of the time Having neck pain radiating up to head and down to R shoulder blade. BL arm numbness/paresthesias upon awakening , resolves in 10-15 seconds Dry eyes- uses eye drops PRN No period for 1 year and 3 months, yesterday started having normal period Has had hot flashes and night sweats, not interested in HRT Took Y formula for 2 months, had strong nails while on it and nails are peeling again off it Taking Biocidin for about a week, was on vacation without it- tolerated it well with no off Also c/o bump on R ankle, hurts to wear heels and dance, getting worse September 13, 2022 Johann Celestin DO Subjective: Myalgias are resolved with egg elimination Doing well GI effects- Increased SIGA Fecal fat Increased RV Yeast++ Poor sleep, dry eyes, sugar cravings ++GENE Review of Systems: As above June 24, 2022 Johann Celestin DO Patient Goals: Health optimization HPI: 51 year old female with a pmh that presents to [facility] to optimize health. Previously used muscle testing to eliminate packaged foods, sugar, dairy I'm having menopause related issues, body aches, eye dryness, not sleeping well, hot flashes, and headaches at times. Menopause, sleep issues have been since my mom 1.5 years ago. Not sure about the body aches. I never get headaches, so I'm not sure. Make sure i'm on the right track with eating. check lab work, make sure all is well there No periods for seven months- new onset poor sleep, body aches, hot flashes Dry eyes, dry skin, dry mouth as of late, + brandon Jackson- terry kelly- helped her process grief from multiple deaths in her family- Mom passed of cancer : [employer]: highly processed diet- Middle: Dental work HS: [employer] Lifestyle and Exposure History: Diet-tries to eliminate processed foods BM-bristol 4 daily- steve at times Sleep-6 hrs- - tired upon awakening Exercise-active- dancing/ walking/ gentle yoga Stress-working with a shaman which helps stress Relationships- good support system ONEL-0 Drugs/ETOH/tobacco- none Work-psychologist social Medication Reactions-nkda Exposures: Tick bites No Silver amalgams Yes Drinking water Yes Fish consumption No Mold Yes Chemical/Industrial/Pesticides Yes Chemical sensitivities No Foreign travel/Frequent airplane travel Yes Supplements: Lysine- HSV 1 (seeds, nuts, trigger) [place] 3 MVT Review of Systems: See above Objective: virtual There were no vitals taken for this visit. Bio[employer]rical Impedance Analysis Results by [employer] Recent Results from: 12/31/23 at 15:32 PM BMI: 20.73 kg/m General Test Result Range Phase Angle (PA) Basal Metabolic Rate (BMR) Fat & Fat Free Mass Test Result Range Fat (lbs) Fat % Fat Free Mass (FFM) lbs Total Body Water Test Result Range TBW (lbs) TBW % of FFM Intracellular Water Test Result Range ICW (lbs) ICW % of FFM Extracellular Water Test Result Range ECW (lbs) ECW % of FFM Physical Exam: virtual CURRENT Functional Medicine Assessment/ PLAN Underlying Causes: stress, toxins, infection, nutritional insufficiencies or excessess, sleep Triggers/Mediators: exposures, genomics, stress Today's Focus: gut healing Nutritional Assessment Minimally processed - dairy free Food reactions- to citrus Digestive Function Bloating Inflammation/Immune Function Yeast infections with dairy Autoimmune - RA, SLE, Psoriasis, etc Energy Production/Function: Fatigue Cognitive decline/brain fog Migraines/Headaches Detoxification Function Mercury/Amalgams Mold exposure Hormonal Function: Perimenopause Latest Ref Rng 09/30/2023 Sex Hormone Bind GLB 17 - 125 nmol/L 52 Sex Hormone Bind GLB 17 - 125 nmol/L 58 Testosterone Total 9 - 55 ng/dL 5 (L) Testosterone Free 1.1 - 5.8 pg/mL 0.6 (L) Testo Bioavailable 2.8 - 16.5 ng/dL 1.6 (L) Estradiol pg/mL <2.0 Estrone pg/mL 7.7 Estrogens Total pg/mL See Note Progesterone See comment ng/mL <0.2 FSH See comment mIU/mL 146.2 LH See comment mIU/mL 43.4 DHEA-S 35.4 - 256.0 ug/dL 35.4 Legend: (L) Low Structural Function: Musculoskeletal pain Future Plans: Discussed oral progesterone - will wait for now per pt Assessment Assessment: N95.1 Perimenopause (primary encounter diagnosis) Plan and Lifestyle Prescription Plan/Instructions/Resources: Reviewed labs and plan with patient. Discussed opportunities to communicate with myself and team if needed before next appointment, ie, MyChart, telephone, virtual visits. Continue current supplements May stop the Armra Follow up with medical collections for support with avoiding sugar PCP's that are familiar and supportive of Functional Medicine: Dr. Eliseo Lambert - [facility] Dr. Micah Perkins MD [facility] Dr. Janett Chavez D.O., family medicine - [facility] Book - Estrogen Matters - by Dr. Delia Bermudez and Dr. Daniella Queen Medications/Supplements Recommended: No orders of the defined types were placed in this encounter. I recommend the supplements from the [facility] Healthy Living Store Online Store at [email or web address] [email or web address] as we have thoroughly evaluated the research and use only highest quality supplements. Please use code: [email or web address] Future Plans: Follow up: Please schedule a follow up visit with the following Caregivers: Provider: 6 months LIFESTYLE PRESCRIPTION Functional Nutrition: Per chiseler head Sleep: Sleep goal for most adults is a minimum of 7-9 hours nightly. Exercise Prescription: Numerous studies confirm the benefits of regular moderate aerobic exercise (walking, swimming, elliptical machine, cycling, etc.) for 30 min 5 days per week (150 min goal). Stress Management: 1) Please look into this Heart Rate Variability BioFeedback Tool (www.heartmath.org). 2) A regular, daily meditation practice of at least 15-20 minutes will change your brain--as well as your genes! Behavioral Health Therapist: If I recommended counseling or individual therapy, please schedule an individual appointment with our Functional Medicine Behavioral Health Therapist after your visit today. The Behavioral Health Therapist helps patients identify and understand feelings and behaviors, experience the process of making positive change, and gain healthy coping skills. Health Coaching: Please consider scheduling with our [place] for Functional [facility] health coaches for a phone or virtual visit for accountability, goal setting and help with behavior shredding machine knife changer the next 6-8 weeks to be successful with your goals. [phone]. Smart phone apps to begin a meditative practice: Headspace (free for first 10 days) Insight Meditation Timer- (Free)-Great all-around marcellus to use for guided meditations of many different types and lengths or just to use as a tool to time and track your meditation practice. This is my absolute favorite! Calm- (Free) Walking Meditations-($1.99)- Get your walk AND meditation done together. A good way to start out for individuals who feel they just can't sit still to begin a meditative practice. During the next 6-8 weeks you'll be working on your diet plan discussed with our chiseler head, allowing for gentle detoxification and decreasing inflammation - while we are gathering your lab results and combining those with your complete history to formulate a very personalized treatment plan. LAB results: Due to the complexity of the testing performed, we are not able to review labs via [employer] or over the phone, but please know, if any of your labs are critical we will contact you. Otherwise, we will review all your labs at your next visit. We will go over a lot of information during your follow up visit - so please be well-rested and you may want to bring someone with you, if possible. Also make sure to schedule with the chiseler head (this will not happen automatically) as you did with your first visit so that she can review nutritional aspects of your treatment plan. By your 3rd visit, as things are improving, we will likely transition you to one of our very capable Certified Nurse Practitioners/Physician Assistants for further follow-up. Potential future labs: Any [facility] labs ordered take about 4 weeks to return. Do them as soon as possible so that we have the results before your next appointment. You can access them on the [facility] website and it can be beneficial if you review them prior to your next visit. [email or web address]. Read about NutrEval if this was ordered. *Irena Damon APRN.PICK UP OPERATOR I spent a total of 30 minutes on the date of the service which included [id number] patient care. documented in this encounter [facility] 12-31-2023 Note HNO ID: [id number] Author: IRENA DAMON APRN.LUISANA Service: ? Author Type: Nurse Practitioner Type: Progress Notes Filed: 12/31/2023 15:34 Note Text: Follow-up Visit - virtual I have communicated my name and active licensure. The patient's identity and physical location were verified at the time of this visit. Either the patient or their legal field service representative has been informed of the risks and benefits of -- and alternatives to -- treatment through a remote evaluation and consents to proceed with the evaluation remotely. Patient: Brenda Turner There is no height or weight on file to calculate BMI. RMR can't be calculated - Weight unrecorded in last 120 days. Waist measurement: No waist measurement recorded. BP: ALLERGIES No Known Allergies Current Outpatient Medications on File Prior to Visit Medication Sig OTC NUTRITIONAL SUPPLEMENT Take 1 Scoop by mouth once daily. Armra powder Magnesium Glycinate 120mg (Pure Encapsulations) Take 2 capsules before bed Cortisol Locomotive Engineer Diesel 90 ct. ([employer]) Take one tablet at bedtime. No current facility-administered medications on file prior to visit. No past medical history on file. No past surgical history on file. Functional Medicine Timeline MSQ: Patient Entered Questionnaire PROMIS Scale T-Scores -- HIGHER SCORES BETTER 01/13/2023 08/21/2023 12/31/2023 PROMIS Global Health - (T-Scores - the mean of general population = 50. Five points is a clinically meaningful difference.) Physical T-Score 54.1 57.7 50.8 Mental T-Score 56 67.6 56 Depression Screenin06/18/2022 PHQ-9 Score 3 06/18/2022 PHQ-9 Self Harm Question 9 Not at all PHQ-9 Self-Harm (Item 9) response options: 0 Not at all 1 Several days 2 More than half the days 3 Nearly every day PHQ-9 Levels: 0-4 Minimal depression 5-9 Mild depression 10-14 Moderate depression 15-19 Moderately severe depression 20-27 Severe depression December 31, 2023 Irena Damon APRN.PICK UP OPERATOR Subjective: Goals: Review labs Hx of dysbiosis, menopause, bilateral arm numbness - referred to OMT Tried progesterone cream. Decided to stick with motherwort instead. Working with ayurvedic provider - no hot flashes. Tried magnesium - sleep is better. Cortisol account manager helps with stress. Sleeps 6 hours - watches too much TV. Goes to bed at midnight. Stress is more manageable. Exercise - walks, yoga, salsa dance, wt lifting Diet - GF, whole foods, eating more sugar BM - daily, formed Supplements - Armra (immune supplement), magnesium August 21, 2023 Irena Damon APRN.PICK UP OPERATOR Subjective: Goals: Wants blood work since hasn't had it in a year When lying down has pressure in LUQ and can radiate to scapula. Seems to have improved when stopping pineapple Last seen 12/[address] Hart. Patient is new to me today. Hx of dysbiosis, menopause, bilateral arm numbness - referred to OMT Has more gas with beans and some raw vegetables. Bilateral arm numbness resolved. Did have 1 OMT appt LMP 03/2023. Hot flashes and night sweats managed well with motherwort Had tried LDN for sleep but didn't like it. Sleep - having trouble staying asleep Stress is high Exercise - walks, yoga, salsa dance, wt lifting Diet - avoids sugar, GF, whole foods BM - daily, formed Supplements - Armra (immune supplement), motherwort Subjective: 01/13/23 Dr. Alicia Hart 52 yo female pt with history of dysbiosis Pt previously saw Dr Celestin and is new to me today Energy is good, does get a dip in the afternoon, will drink tea Normal bowels 95% of the time Having neck pain radiating up to head and down to R shoulder blade. BL arm numbness/paresthesias upon awakening , resolves in 10-15 seconds Dry eyes- uses eye drops PRN No period for 1 year and 3 months, yesterday started having normal period Has had hot flashes and night sweats, not interested in HRT Took Y formula for 2 months, had strong nails while on it and nails are peeling again off it Taking Biocidin for about a week, was on vacation without it- tolerated it well with no off Also c/o bump on R ankle, hurts to wear heels and dance, getting worse September 13, 2022 Johann Celestin DO Subjective: Myalgias are resolved with egg elimination Doing well GI effects- Increased SIGA Fecal fat Increased RV Yeast++ Poor sleep, dry eyes, sugar cravings ++GENE Review of Systems: As above June 24, 2022 Johann Celestin DO Patient Goals: Health optimization HPI: 51 year old female with a pmh that presents to [facility] to optimize health. Previously used muscle testing to eliminate packaged foods, sugar, dairy I'm having menopause related issues, body aches, eye dryness, not sleeping well, hot flashes, and headaches at times. Menopause, sleep issues have been since my mom 1.5 years ago. Not sure about the body aches. I never get headaches, so I'm not sure. Make sure i'm on the right track wit (more content not included)... [facility] 11-21-2023 Note Formatting of this n ote might be different from the original. [address] [address] November 21, 2023 PID: [id number] Brenda Turner [address] [place] [address] Dear Ms. Turner, We are pleased to inform you that the results of your recent breast imaging exam on 11/20/2023 are normal. Your mammogram demonstrates that you have dense breast tissue, which could hide abnormalities. Dense breast tissue, in and of itself, is a relatively common condition. Therefore, this information is not provided to cause undue concern; rather, it is to raise your awareness and promote discussion with your health care provider regarding the presence of dense breast tissue in addition to other risk factors. Early detection of cancer is very important. We also understand recommendations regarding breast cancer screening are controversial. Please discuss with your primary care provider which strategy is best for you and whether a mammogram is right for you. Your imaging studies and report will be kept on file at [facility] as part of your permanent medical record and are available for your continuing care. Thank you for allowing us to help in meeting your health care needs. Sincerely, Dr. Ernst Interpreting Radiologist [facility] (Normal over 40) [facility] 11-21-2023 Miscellaneous Notes [facility] [address] [place] [address] November 21, 2023 PID: [id number] Brenda Turner [address] [place] [address] Dear Ms. Turner, We are pleased to inform you that the results of your recent breast imaging exam on 11/20/2023 are normal. Your mammogram demonstrates that you have dense breast tissue, which could hide abnormalities. Dense breast tissue, in and of itself, is a relatively common condition. Therefore, this information is not provided to cause undue concern; rather, it is to raise your awareness and promote discussion with your health care provider regarding the presence of dense breast tissue in addition to other risk factors. Early detection of cancer is very important. We also understand recommendations regarding breast cancer screening are controversial. Please discuss with your primary care provider which strategy is best for you and whether a mammogram is right for you. Your imaging studies and report will be kept on file at [facility] as part of your permanent medical record and are available for your continuing care. Thank you for allowing us to help in meeting your health care needs. Sincerely, Dr. Ernst Interpreting Radiologist [facility] (Normal over 40) documented in this encounter [facility] 11-20-2023 History of Present illness Narrative Radiology Service Progress Note PATIENT NAME: Brenda Turner DATE OF SERVICE: November 20, 2023 TIME: 11:31 AM PATIENT IDENTITY VERIFICATION COMPLETED USING TWO (2) IDENTIFIERS: Name and Date of confirmed by patient verbally. FALL SCREENING: Has the patient had 2 falls in the last year or 1 fall with injury or currently using an Ambulatory Assistive Device (Walker, Cane, Wheelchair, Crutches, etc.)? No PATIENT GENDER DATA: Female. status: : No status: N/A PATIENT RELEVANT IMPLANT DATA REVIEWED: Not Applicable PATIENT PRESENTS WITH AN IMPLANTABLE OR ATTACHED WOOL GROWER: No RADIOLOGY DEPARTMENT: Mammography PERIPHERAL IV DATA: Not applicable SIGNED BY: VIJAY Barros) November 20, 2023 11:31 AM documented in this encounter [facility] 11-20-2023 Note HNO ID: [id number] Author: TARYN MATA RT(R) Service: Radiology Author Type: Technologist Type: Progress Notes Filed: 11/20/2023 11:32 Note Text: Radiology Service Progress Note PATIENT NAME: Brenda Turner DATE OF SERVICE: November 20, 2023 TIME: 11:31 AM PATIENT IDENTITY VERIFICATION COMPLETED USING TWO (2) IDENTIFIERS: Name and Date of confirmed by patient verbally. FALL SCREENING: Has the patient had 2 falls in the last year or 1 fall with injury or currently using an Ambulatory Assistive Device (Walker, Cane, Wheelchair, Crutches, etc.)? No PATIENT GENDER DATA: Female. status: : No status: N/A PATIENT RELEVANT IMPLANT DATA REVIEWED: Not Applicable PATIENT PRESENTS WITH AN IMPLANTABLE OR ATTACHED WOOL GROWER: No RADIOLOGY DEPARTMENT: Mammography PERIPHERAL IV DATA: Not applicable SIGNED BY: RT Papo(Kirstie) November 20, 2023 11:31 AM [facility] 08-21-2023 Instructions Irena Damon APRN.CNP - 08/21/2023 12:13 PM EDT Plan and Lifestyle Prescription Plan/Instructions/Resources: Reviewed labs and plan with patient. Discussed opportunities to communicate with myself and team if needed before next appointment, ie, MyChart, telephone, virtual visits. CFM labs - hormones For sleep with perimenopause: Follow up with health gymnastics coach or instructor for support with sleep hygiene Cortisol Locomotive Engineer Diesel 90 ct. ([employer]) Sig: Take one tablet at bedtime. Magnesium Glycinate 120mg (Pure Encapsulations) Sig: Take 2 capsules before bed Progesterone cream - Pro Gest by Billie. Use a dime size, apply to abdomen or inner thighs daily. May purchase on [employer]. For menopause: Book - Estrogen Matters - by Dr. Delia Bermudez and Dr. Daniella Queen PCP's that are familiar and supportive of Functional Medicine: Austin Brenner.O. - [facility] Dr. Eliseo Lambert - [facility] Dr. Micah Perkins MD - [place] Dr. Janett Chavez D.O., family medicine - [place] Medications/Supplements Recommended: Medication orders placed this encounter Cortisol Locomotive Engineer Diesel 90 ct. ([employer]) Sig: Take one tablet at bedtime. Magnesium Glycinate 120mg (Pure Encapsulations) Sig: Take 2 capsules before bed I recommend the supplements from the [facility] Store Online Store at [email or web address] as we have thoroughly evaluated the research and use only highest quality supplements. Please use code: [email or web address] Follow up: Please schedule a follow up visit with the following Caregivers: Provider: 12weeks LIFESTYLE PRESCRIPTION Functional Nutrition: Per chiseler head Sleep: Sleep goal for most adults is a minimum of 7-9 hours nightly. Exercise Prescription: Numerous studies confirm the benefits of regular moderate aerobic exercise (walking, swimming, elliptical machine, cycling, etc.) for 30 min 5 days per week (150 min goal). Stress Management: 1) Please look into this Heart Rate Variability BioFeedback Tool (www.heartmath.org). 2) A regular, daily meditation practice of at least 15-20 minutes will change your brain--as well as your genes! Behavioral Health Therapist: If I recommended counseling or individual therapy, please schedule an individual appointment with our Functional Medicine Behavioral Health Therapist after your visit today. The Behavioral Health Therapist helps patients identify and understand feelings and behaviors, experience the process of making positive change, and gain healthy coping skills. Health Coaching: Please consider scheduling with our [facility] health coaches for a phone or virtual visit for accountability, goal setting and help with behavior shredding machine knife changer the next 6-8 weeks to be successful with your goals. [phone]. Smart phone apps to begin a meditative practice: Headspace (free for first 10 days) Insight Meditation Timer- (Free)-Great all-around marcellus to use for guided meditations of many different types and lengths or just to use as a tool to time and track your meditation practice. This is my absolute favorite! Calm- (Free) Walking Meditations-($1.99)- Get your walk AND meditation done together. A good way to start out for individuals who feel they just can't sit still to begin a meditative practice. During the next 6-8 weeks you'll be working on your diet plan discussed with our chiseler head, allowing for gentle detoxification and decreasing inflammation - while we are gathering your lab results and combining those with your complete history to formulate a very personalized treatment plan. LAB results: Due to the complexity of the testing performed, we are not able to review labs via [employer] or over the phone, but please know, if any of your labs are critical we will contact you. Otherwise, we will review all your labs at your next visit. We will go over a lot of information during your follow up visit - so please be well-rested and you may want to bring someone with you, if possible. Also make sure to schedule with the chiseler head (this will not happen automatically) as you did with your first visit so that she can review nutritional aspects of your treatment plan. By your 3rd visit, as things are improving, we will likely transition you to one of our very capable Certified Nurse Practitioners/Physician Assistants for further follow-up. Potential future labs: Any [facility] labs ordered take about 4 weeks to return. Do them as soon as possible so that we have the results before your next appointment. You can access them on the [facility] website and it can be beneficial if you review them prior to your next visit. [email or web address]. Read about NutrEval if this was ordered. *Irena Damon APRN.LUISANA documented in this encounter [facility] 08-21-2023 History of Present illness Narrative Follow-up Visit - virtual I have communicated my name and active licensure. The patient's identity and physical location were verified at the time of this visit. Either the patient or their legal field service representative has been informed of the risks and benefits of -- and alternatives to -- treatment through a remote evaluation and consents to proceed with the evaluation remotely. Patient: Brenda Turner 53.1 kg (117 lb) 160 cm (5' 3) Body mass index is 20.73 kg/m . RMR can't be calculated - Weight unrecorded in last 120 days. Waist measurement: No waist measurement recorded. BP: ALLERGIES No Known Allergies No current outpatient medications on file prior to visit. No current facility-administered medications on file prior to visit. No past medical history on file. No past surgical history on file. Functional Medicine Timeline MSQ: Patient Entered Questionnaire PROMIS Scale T-Scores -- HIGHER SCORES BETTER 06/18/2022 01/13/2023 08/21/2023 PROMIS Global Health - (T-Scores - the mean of general population = 50. Five points is a clinically meaningful difference.) Physical T-Score 47.7 47.7 47.7 54.1 57.7 Mental T-Score 48.3 48.3 48.3 56 67.6 Depression Screenin06/18/2022 PHQ-9 Score 3 06/18/2022 PHQ-9 Self Harm Question 9 Not at all PHQ-9 Self-Harm (Item 9) response options: 0 Not at all 1 Several days 2 More than half the days 3 Nearly every day PHQ-9 Levels: 0-4 Minimal depression 5-9 Mild depression 10-14 Moderate depression 15-19 Moderately severe depression 20-27 Severe depression August 21, 2023 Irena Damon APRN.PICK UP OPERATOR Subjective: Goals: Wants blood work since hasn't had it in a year When lying down has pressure in LUQ and can radiate to scapula. Seems to have improved when stopping pineapple Last seen 12/[address] Hart. Patient is new to me today. Hx of dysbiosis, menopause, bilateral arm numbness - referred to OMT Has more gas with beans and some raw vegetables. Bilateral arm numbness resolved. Did have 1 OMT appt LMP 03/2023. Hot flashes and night sweats managed well with motherwort Had tried LDN for sleep but didn't like it. Sleep - having trouble staying asleep Stress is high Exercise - walks, yoga, salsa dance, wt lifting Diet - avoids sugar, GF, whole foods BM - daily, formed Supplements - Armra (immune supplement), motherwort Subjective: 01/13/23 Dr. Alicia Hart 52 yo female pt with history of dysbiosis Pt previously saw Dr Celestin and is new to me today Energy is good, does get a dip in the afternoon, will drink tea Normal bowels 95% of the time Having neck pain radiating up to head and down to R shoulder blade. BL arm numbness/paresthesias upon awakening , resolves in 10-15 seconds Dry eyes- uses eye drops PRN No period for 1 year and 3 months, yesterday started having normal period Has had hot flashes and night sweats, not interested in HRT Took Y formula for 2 months, had strong nails while on it and nails are peeling again off it Taking Biocidin for about a week, was on vacation without it- tolerated it well with no off Also c/o bump on R ankle, hurts to wear heels and dance, getting worse September 13, 2022 Johann Celestin DO Subjective: Myalgias are resolved with egg elimination Doing well GI effects- Increased SIGA Fecal fat Increased RV Yeast++ Poor sleep, dry eyes, sugar cravings ++GENE Review of Systems: As above June 24, 2022 Johann Celestin DO Patient Goals: Health optimization HPI: 51 year old female with a pmh that presents to [facility] to optimize health. Previously used muscle testing to eliminate packaged foods, sugar, dairy I'm having menopause related issues, body aches, eye dryness, not sleeping well, hot flashes, and headaches at times. Menopause, sleep issues have been since my mom 1.5 years ago. Not sure about the body aches. I never get headaches, so I'm not sure. Make sure i'm on the right track with eating. check lab work, make sure all is well there No periods for seven months- new onset poor sleep, body aches, hot flashes Dry eyes, dry skin, dry mouth as of late, + brandon Jackson- terry kelly- helped her process grief from multiple deaths in her family- Mom passed of cancer : [employer]: highly processed diet- Middle: Dental work HS: [employer] Lifestyle and Exposure History: Diet-tries to eliminate processed foods BM-bristol 4 daily- steve at times Sleep-6 hrs- - tired upon awakening Exercise-active- dancing/ walking/ gentle yoga Stress-working with a shaman which helps stress Relationships- good support system ONEL-0 Drugs/ETOH/tobacco- none Work-psychologist social Medication Reactions-nkda Exposures: Tick bites No Silver amalgams Yes Drinking water Yes Fish consumption No Mold Yes Chemical/Industrial/Pesticides Yes Chemical sensitivities No Foreign travel/Frequent airplane travel Yes Supplements: Lysine- HSV 1 (seeds, nuts, trigger) [place] 3 MVT Antecedents: exposures, genomics, stress Review of Systems: See above Objective: virtual BP [No BP machine[ Ht 5' 3 (1.60m) Wt 117 lb (53.1kg) BMI 20.73 kg/(m^2). Bioelectrical Impedance Analysis Results by [employer]. Recent Results from: 08/21/23 at 12:11 PM BMI: 20.73 kg/m General Test Result Range Phase Angle (PA) Basal Metabolic Rate (BMR) Fat & Fat Free Mass Test Result Range Fat (lbs) Fat % Fat Free Mass (FFM) lbs Total Body Water Test Result Range TBW (lbs) TBW % of FFM Intracellular Water Test Result Range ICW (lbs) ICW % of FFM Extracellular Water Test Result Range ECW (lbs) ECW % of FFM Physical Exam: virtual CURRENT Functional Medicine Assessment/ PLAN Underlying Causes: stress, toxins, infection, nutritional insufficiencies or excessess, sleep Triggers/Mediators: exposures, genomics, stress Today's Focus: gut healing Nutritional Assessment Minimally processed - dairy free Food reactions- to citrus Digestive Function Bloating Inflammation/Immune Function Yeast infections with dairy Autoimmune - RA, SLE, Psoriasis, etc Energy Production/Function: Fatigue Cognitive decline/brain fog Migraines/Headaches Detoxification Function Mercury/Amalgams Mold exposure Hormonal Function: Perimenopause Structural Function: Musculoskeletal pain Future Plans: Discussed oral progesterone - will wait for now per pt Assessment Assessment: N95.1 Perimenopause (primary encounter diagnosis) Z72.820 Poor sleep Plan and Lifestyle Prescription Plan/Instructions/Resources: Reviewed labs and plan with patient. Discussed opportunities to communicate with myself and team if needed before next appointment, ie, MyChart, telephone, virtual visits. CFM labs - hormones For sleep with perimenopause: Follow up with health gymnastics coach or instructor for support with sleep hygiene Cortisol Locomotive Engineer Diesel 90 ct. ([employer]) Sig: Take one tablet at bedtime. Magnesium Glycinate 120mg (Pure Encapsulations) Sig: Take 2 capsules before bed Progesterone cream - Pro Gest by Billie. Use a dime size, apply to abdomen or inner thighs daily. May purchase on [employer]. For menopause: Book - Estrogen Matters - by Dr. Delia Bermudez and Dr. Daniella Queen PCP's that are familiar and supportive of Functional Medicine: Dr. Heied Arriola, D.O. - [facility] Dr. Eliseo Lambert - [facility] Dr. Micah Perkins MD - [place] Dr. Janett Chavez D.O., family medicine - [place] Medications/Supplements Recommended: Medication orders placed this encounter Cortisol Locomotive Engineer Diesel 90 ct. ([employer]) Sig: Take one tablet at bedtime. Magnesium Glycinate 120mg (Pure Encapsulations) Sig: Take 2 capsules before bed I recommend the supplements from the [facility] [employer] Store Online Store at [email or web address] Mobile [email or web address] as we have thoroughly evaluated the research and use only highest quality supplements. Please use code: [email or web address] Follow up: Please schedule a follow up visit with the following Caregivers: Provider: 12weeks LIFESTYLE PRESCRIPTION Functional Nutrition: Per chiseler head Sleep: Sleep goal for most adults is a minimum of 7-9 hours nightly. Exercise Prescription: Numerous studies confirm the benefits of regular moderate aerobic exercise (walking, swimming, elliptical machine, cycling, etc.) for 30 min 5 days per week (150 min goal). Stress Management: 1) Please look into this Heart Rate Variability BioFeedback Tool (www.heartmath.org). 2) A regular, daily meditation practice of at least 15-20 minutes will change your brain--as well as your genes! Behavioral Health Therapist: If I recommended counseling or individual therapy, please schedule an individual appointment with our Functional Medicine Behavioral Health Therapist after your visit today. The Behavioral Health Therapist helps patients identify and understand feelings and behaviors, experience the process of making positive change, and gain healthy coping skills. Health Coaching: Please consider scheduling with our [facility] health coaches for a phone or virtual visit for accountability, goal setting and help with behavior shredding machine knife changer the next 6-8 weeks to be successful with your goals. [phone]. Smart phone apps to begin a meditative practice: Headspace (free for first 10 days) Insight Meditation Timer- (Free)-Great all-around marcellus to use for guided meditations of many different types and lengths or just to use as a tool to time and track your meditation practice. This is my absolute favorite! Calm- (Free) Walking Meditations-($1.99)- Get your walk AND meditation done together. A good way to start out for individuals who feel they just can't sit still to begin a meditative practice. During the next 6-8 weeks you'll be working on your diet plan discussed with our chiseler head, allowing for gentle detoxification and decreasing inflammation - while we are gathering your lab results and combining those with your complete history to formulate a very personalized treatment plan. LAB results: Due to the complexity of the testing performed, we are not able to review labs via [employer] or over the phone, but please know, if any of your labs are critical we will contact you. Otherwise, we will review all your labs at your next visit. We will go over a lot of information during your follow up visit - so please be well-rested and you may want to bring someone with you, if possible. Also make sure to schedule with the chiseler head (this will not happen automatically) as you did with your first visit so that she can review nutritional aspects of your treatment plan. By your 3rd visit, as things are improving, we will likely transition you to one of our very capable Certified Nurse Practitioners/Physician Assistants for further follow-up. Potential future labs: Any [facility] labs ordered take about 4 weeks to return. Do them as soon as possible so that we have the results before your next appointment. You can access them on the [facility] website and it can be beneficial if you review them prior to your next visit. [email or web address].[email or web address]. Read about NutrEval if this was ordered. *Irena Damon APRN.CNP I spent a total of 30 minutes on the date of the service which included [id number] patient care. documented in this encounter [facility] 08-21-2023 Note HNO ID: [id number] Author: IRENA DAMON APRN.CNP Service: ? Author Type: Nurse Practitioner Type: Progress Notes Filed: 08/21/2023 12:14 Note Text: Follow-up Visit - virtual I have communicated my name and active licensure. The patient's identity and physical location were verified at the time of this visit. Either the patient or their legal field service representative has been informed of the risks and benefits of -- and alternatives to -- treatment through a remote evaluation and consents to proceed with the evaluation remotely. Patient: Brenda Turner 53.1 kg (117 lb) 160 cm (5' 3) Body mass index is 20.73 kg/m?. RMR can't be calculated - Weight unrecorded in last 120 days. Waist measurement: No waist measurement recorded. BP: ALLERGIES No Known Allergies No current outpatient medications on file prior to visit. No current facility-administered medications on file prior to visit. No past medical history on file. No past surgical history on file. Functional Medicine Timeline MSQ: Patient Entered Questionnaire PROMIS Scale T-Scores -- HIGHER SCORES BETTER 06/18/2022 01/13/2023 08/21/2023 PROMIS Global Health - (T-Scores - the mean of general population = 50. Five points is a clinically meaningful difference.) Physical T-Score 47.7 47.7 47.7 54.1 57.7 Mental T-Score 48.3 48.3 48.3 56 67.6 Depression Screenin06/18/2022 PHQ-9 Score 3 06/18/2022 PHQ-9 Self Harm Question 9 Not at all PHQ-9 Self-Harm (Item 9) response options: 0 Not at all 1 Several days 2 More than half the days 3 Nearly every day PHQ-9 Levels: 0-4 Minimal depression 5-9 Mild depression 10-14 Moderate depression 15-19 Moderately severe depression 20-27 Severe depression August 21, 2023 Irena Damon APRN.PICK UP OPERATOR Subjective: Goals: Wants blood work since hasn't had it in a year When lying down has pressure in LUQ and can radiate to scapula. Seems to have improved when stopping pineapple Last seen 12/[address] Hart. Patient is new to me today. Hx of dysbiosis, menopause, bilateral arm numbness - referred to OMT Has more gas with beans and some raw vegetables. Bilateral arm numbness resolved. Did have 1 OMT appt LMP 03/2023. Hot flashes and night sweats managed well with motherwort Had tried LDN for sleep but didn't like it. Sleep - having trouble staying asleep Stress is high Exercise - walks, yoga, salsa dance, wt lifting Diet - avoids sugar, GF, whole foods BM - daily, formed Supplements - Armra (immune supplement), motherwort Subjective: 01/13/23 Dr. Alicia Hart 52 yo female pt with history of dysbiosis Pt previously saw Dr Celestin and is new to me today Energy is good, does get a dip in the afternoon, will drink tea Normal bowels 95% of the time Having neck pain radiating up to head and down to R shoulder blade. BL arm numbness/paresthesias upon awakening , resolves in 10-15 seconds Dry eyes- uses eye drops PRN No period for 1 year and 3 months, yesterday started having normal period Has had hot flashes and night sweats, not interested in HRT Took Y formula for 2 months, had strong nails while on it and nails are peeling again off it Taking Biocidin for about a week, was on vacation without it- tolerated it well with no off Also c/o bump on R ankle, hurts to wear heels and dance, getting worse September 13, 2022 Johann Celestin DO Subjective: Myalgias are resolved with egg elimination Doing well GI effects- Increased SIGA Fecal fat Increased RV Yeast++ Poor sleep, dry eyes, sugar cravings ++GENE Review of Systems: As above June 24, 2022 Johann Celestin DO Patient Goals: Health optimization HPI: 51 year old female with a pmh that presents to [facility] to optimize health. Previously used muscle testing to eliminate packaged foods, sugar, dairy I'm having menopause related issues, body aches, eye dryness, not sleeping well, hot flashes, and headaches at times. Menopause, sleep issues have been since my mom 1.5 years ago. Not sure about the body aches. I never get headaches, so I'm not sure. Make sure i'm on the right track with eating. check lab work, make sure all is well there No periods for seven months- new onset poor sleep, body aches, hot flashes Dry eyes, dry skin, dry mouth as of late, + brandon Jackson- terry kelly- helped her process grief from multiple deaths in her family- Mom passed of cancer : [employer]: highly processed diet- Middle: Dental work HS: [place] Lifestyle and Exposure History: Diet-tries to eliminate processed foods BM-bristol 4 daily- steve at times Sleep-6 hrs- - tired upon awakening Exercise-active- dancing/ walking/ gentle yoga Stress-working with a shaman which helps stress Relationships- good support system ONEL-0 Drugs/ETOH/tobacco- none Work-psychologist social Medication Reactions-nkda Exposures: Tick bites No Silver amalgams Yes (more content not included)... [facility] 01-13-2023 Note HNO ID: [id number] Author: Alicia Hart DO Service: ? Author Type: Physician Type: Progress Notes Filed: 01/13/2023 4:15 PM Note Text: Follow-up Visit Patient: Brenda Turner ALLERGIES No Known Allergies No current outpatient medications on file. No current facility-administered medications for this visit. No past medical history on file. No past surgical history on file. EVALUATION MSQ: PROMIS: Functional Medicine Timeline Subjective: 01/13/23 Dr. Alicia Hart 52 yo female pt with history of dysbiosis Pt previously saw Dr Celestin and is new to me today Energy is good, does get a dip in the afternoon, will drink tea Normal bowels 95% of the time Having neck pain radiating up to head and down to R shoulder blade. BL arm numbness/paresthesias upon awakening , resolves in 10-15 seconds Dry eyes- uses eye drops PRN No period for 1 year and 3 months, yesterday started having normal period Has had hot flashes and night sweats, not interested in HRT Took Y formula for 2 months, had strong nails while on it and nails are peeling again off it Taking Biocidin for about a week, was on vacation without it- tolerated it well with no off Also c/o bump on R ankle, hurts to wear heels and dance, getting worse September 13, 2022 Johann Celestin DO Subjective: Myalgias are resolved with egg elimination Doing well GI effects- Increased SIGA Fecal fat Increased RV Yeast++ Poor sleep, dry eyes, sugar cravings ++GENE Review of Systems: As above June 24, 2022 Johann Celestin DO Patient Goals: Health optimization HPI: 51 year old female with a pmh that presents to [facility] to optimize health. Previously used muscle testing to eliminate packaged foods, sugar, dairy I'm having menopause related issues, body aches, eye dryness, not sleeping well, hot flashes, and headaches at times. Menopause, sleep issues have been since my mom 1.5 years ago. Not sure about the body aches. I never get headaches, so I'm not sure. Make sure i'm on the right track with eating. check lab work, make sure all is well there No periods for seven months- new onset poor sleep, body aches, hot flashes Dry eyes, dry skin, dry mouth as of late, + brandon Jackson- terry kelly- helped her process grief from multiple deaths in her family- Mom passed of cancer : [employer]: highly processed diet- Middle: Dental work HS: [employer] Lifestyle and Exposure History: Diet-tries to eliminate processed foods BM-bristol 4 daily- steve at times Sleep-6 hrs- - tired upon awakening Exercise-active- dancing/ walking/ gentle yoga Stress-working with a shaman which helps stress Relationships- good support system ONEL-0 Drugs/ETOH/tobacco- none Work-psychologist social Medication Reactions-nkda Exposures: Tick bites No Silver amalgams Yes Drinking water Yes Fish consumption No Mold Yes Chemical/Industrial/Pesticides Yes Chemical sensitivities No Foreign travel/Frequent airplane travel Yes Supplements: Lysine- HSV 1 (seeds, nuts, trigger) [place] 3 MVT Antecedents: exposures, genomics, stress Labs: reviewed Review of Systems: hot flashes, sleep disturbances, anxiety, myalgias, bloating- with beans, Review of Systems: See Living Matrix Objective: VSS BP 98/59 Pulse 74 Ht 160 cm (5' 3) Wt 55.3 kg (122 lb) BMI 21.61 kg/m? PHYSICAL EXAMINATION: General appearance: Well appearing, alert, in no acute distress, well-hydrated, well nourished. Skin: Skin color, texture, turgor normal, no suspicious rashes or lesions Head: Normocephalic, no masses, lesions, tenderness or abnormalities Eyes: Anicteric sclera. Lungs: Unlabored on room air Heart: Pulse WNL Osteopathic structural exam: OA compressed +TART changes in the cervical and thoracic regions C2 FRSL T7 ERSR PREVIOUS Functional Medicine Assessment/Plan Intestinal dysbiosis -GI effects reviewed -Labs reviewed -Add daily Digestive enzymes -Start the following regimen: Y formula , then biocidin, then, armra -Pt to provide supplement update via [facility] Gastrointestinal food sensitivity -Continue holding reactive foods (Eggs, Barley, Beef) -Will consider reintroduction in the future -Cooked eggs okay Cervicalgia - CONSULT OSTEOPATHIC NEUROMUSCULOSKELETAL MEDICINE -Somatic dysfunction noted on osteopathic exam- -See Dr. Chelsea De Souza [facility] [place] Low back pain without sciatica, unspecified back pain laterality, unspecified chronicity - CONSULT OSTEOPATHIC NEUROMUSCULOSKELETAL MEDICINE -OMT referral -Somatic dysfunction noted Sleep disturbance -Discussed strategies for sleep support -resources provided -Trial red light therapy -Consider [facility] -LDN (future) for refractory symptoms Assessment ASSESSMENT/PLAN: 1. Post-menopausal bleeding - ICD9: 627.1, ICD10: N95.0 (primary diagnosis) - US FEMALE PELVIS TRANSVAG 2. Chronic (more content not included)... [facility] 2022 Miscellaneous Notes Rx LDN sent documented in this encounter [facility] 09-26-2022 History of Present illness Narrative Health Coaching Follow-up IN PERSON Prior Goals/Plan: .................................. .................................. .................................. ............................. Current Focus: Nutrition: lifestyle domain not prioritized today Social Support: lifestyle domain not prioritized today Stress: lifestyle domain not prioritized today Physical Activity: started personal training a month ago; fell of walking, yoga, and dancing ; dancing prevented by ankle issues (get it checked out) Mindset: lifestyle domain not prioritized today Sleep: has been a good sleeper- last 2 years has been bad; Estrovera supplement; getting more active ; doing more; Time varies -> 12am - 3 am listens to Calm marcellus / TV 4.30am - 7 am; intense form of deep tiredness Possibility to regulate circadian rhythm! Last 2 years since her mom .................................. .................................. .................................. ............................. Three Month Goals (-> 09/26/22): Sleep: improve PA: return Get more creative .................................. .................................. .................................. ............................ Wellness Vision: I am a woman with a very strong body, that rides the wave of changes. I not only feel strong but I also look strong. I am in the best shape of my life. I am seeing more magic in my life. I feel vital, energized, and indestructible. I am able to handle anything that comes my way. I am super active and having fun, I feel unlimited when it comes to movement. I am prais! I am protected and I 'see' it [place]-Sense: possibility Body-Part: Chest, lower back, shoulders Personal Strengths: - resilient - not stopping before getting answers - fun .................................. .................................. .................................. ............................. SMART Goal(s)/Current Plan: .................................. .................................. .................................. ............................. Recommended Follow-up: monthly Time Spent with patient: 30 minutes Consult Billing Type: 1 increment (30 minutes) Number of Increments: 1 (30 minutes) Signed by: Irena Graham [facility] Health Return Clerk documented in this encounter [facility] 09-26-2022 Instructions Irena Graham [facility] - 09/26/2022 1:58 PM EDT Images from the original note were not included. [facility] FUNCTIONAL MEDICINE HEALTH [facility] EXPEDITION GUIDE FOLLOW-UP Staff Health Return Clerk Follow-Up: In 2 weeks with Irena Graham [facility]. Schedule through [facility] or by calling the [place] [facility]. [phone] option #1 Wellness Vision: I am a woman with a very strong body, that rides the wave of changes. I not only feel strong but I also look strong. I am in the best shape of my life. I am seeing more magic in my life. I feel vital, energized, and indestructible. I am able to handle anything that comes my way. I am super active and having fun, I feel unlimited when it comes to movement. I am paris! I am protected and I 'see' it [place]-Sense: possibility Body-Part: Chest, lower back, shoulders Be as creative and as emotionally involved as possible in creating YOUR vision statement! Three Month Goals (-> 09/26/22): Sleep: improve PA: return Get more creative Recommended Resources from [employer] [facility] Return Clerk Portal: Nutrition Contact CFM Registered Dietitian Mindful and Intuitive Eating Simple Steps to Eat Mindfully Stress Resilience Meditation-How to Get Started Strategies for Transforming Stress Movement The Power of Movement Yoga on the Go Sleep Health IFM Suggestions for Better Sleep Health Benefits of Napping Sleep Questionnaire Mindfulness for Insomnia and Sleep Disorders Mindset Integrating Guided Imagery and Visualization to Achieve Personal Health Goals Practicing Gratitude with the IFM Gratitude Journal VIA Wild[place] Connections Assessment Support System Self-Care Questionnaire .................................. .................................. .................................. ............................. ADDITIONAL INSTRUCTIONS: We offer group coaching sessions focused on Mindfulness in the areas of Mindset, Stress, Movement, or Sleep. How to [place] for the Mindfulness Group Coaching Program -Choose from topics: Mindset, Stress, Movement, or Sleep. - Call the appointment line [phone], option #1 How to Contact Your Functional Medicine Team (Open M-F 8am-5pm): MyChart is the BEST form of communication to reach the Functional Medicine Team, see test results and request refills. Please allow 72 business hours for a response. Directions for signing up are included in your New Patient Folder. (Or you can go to [email or web address] Ordering Supplements: Supplements can be ordered from the [facility]'s [facility] Functional Medicine's Online Store: [email or web address] New patients to the [facility] will need to enter the provider code FUNCTIONAL to register their account. documented in this encounter [facility] 08-27-2022 [facility] 2:04 PM EDT Images from the original note were not included. [facility] HE[facility] R[facility] EXPEDITION GUIDE FOLLOW-UP Staff Health Return Clerk Follow-Up: In 2-3 weeks with [facility]. Schedule through [facility] or by calling the [facility]. [phone] option #1 Wheel of Wellness Self-Assessment Wheel of Wellness Satisfaction Willingness Confidence Comments Nutrition 3 4 4 Sleep 2 4 4 Stress Resilience 2-3 4 4 Social Support 1 4 4 Mindset 3 4 4 Physical Activity 4 4 4 Personal Strengths: - resilient - not stopping before getting answers - fun Recommended Resources from [facility] Health Return Clerk Portal: Nutrition Contact M Registered Dietitian Mindful and Intuitive Eating Simple Steps to Eat Mindfully Stress Resilience Meditation-How to Get Started Strategies for Transforming Stress Movement The Power of Movement Yoga on the Go Sleep Health IFM Suggestions for Better Sleep Health Benefits of Napping Sleep Questionnaire Mindfulness for Insomnia and Sleep Disorders Mindset Integrating Guided Imagery and Visualization to Achieve Personal Health Goals Practicing Gratitude with the IFM Gratitude Journal VIA Character Strengths Assessment Support System Self-Care Questionnaire .................................. .................................. .................................. ............................. ADDITIONAL INSTRUCTIONS: We offer group coaching sessions focused on Mindfulness in the areas of Mindset, Stress, Movement, or Sleep. How to [place] for the Mindfulness Group Coaching Program -Choose from topics: Mindset, Stress, Movement, or Sleep. - Call the appointment line [phone], option #1 How to Contact Your Functional Medicine Team (Open M-F 8am-5pm): MyChart is the BEST form of communication to reach the Functional Medicine Team, see test results and request refills. Please allow 72 business hours for a response. Directions for signing up are included in your New Patient Folder. (Or you can go to [email or web address] Ordering Supplements: Supplements can be ordered from the [facility]'s [place] [facility]'s Online Store: [email or web address] New patients to the [employer] will need to enter the provider code FUNCTIONAL to register their account. documented in this encounter [facility] 08-27-2022 History of Present illness Narrative [facility] Health Coaching Initial Assessment IN PERSON Wheel of Wellness Self-Assessment Wheel of Wellness Satisfaction Willingness Confidence Comments Nutrition 3 4 4 Generally been doing the elimination diet for the last 10 years; sugar craving after stopping alcohol; coffee is the hard stop; added cold water fish that helps with sleep and hot flash Sleep 2 4 4 Recently improved; 5 hours of uninterrupted; 12am - 6.30am; feels rested in the morning; napping if having the chances Stress Resilience 2-3 4 4 Recovering from serious trauma - 3 within a month unexpected + mom; working with a shaman - happy with process Social Support 1 4 4 Friends are still in [facility]; still not grounded here yet Mindset 3 4 4 Physical Activity 4 4 4 Walk, yoga, salsa dancing GARCIA Satisfaction 1= Extremely Dissatisfied 4= Extremely Satisfied Willingness 1= Not at all willing 4= Extremely Willing Confidence 1= Not at all confident 4= Extremely Confident .................................. .................................. .................................. ............................. 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 Eye health; Personal Strengths: - resilient - not stopping before getting answers - fun .................................. .................................. .................................. ............................. Wellness Vision: .................................. .................................. .................................. ............................. Three Month Goals (start and end date): .................................. .................................. .................................. ............................. Educational materials provided/Referrals made: see After Visit Summary Find all resources in the [facility] Return Clerk Portal Recommended Follow-up: weekly Time Spent with patient: 30 minutes Consult Billing Type: 1 increment (30 minutes) Number of Increments: 1 (30 minutes) Signed by: Irena GrahamReplaced by [facility] Health Return Clerk documented in this encounter [facility] 06-24-2022 History of Present illness Narrative Images from the original note were not included. [facility] Nutrition Therapy: Initial Assessment (Group) New Patient Shared Nutrition Appointment IN PERSON Living Matrix complete; history adapted from intake form Class Topic: Introduction to Functional Nutrition and Implementation of Foundational Food Plan Patient Name: Brenda Turner Past Medical History: No past medical history on file. Allergies: Patient has no allergy information on record. Current Medications/Supplements No current outpatient medications on file prior to visit. No current facility-administered medications on file prior to visit. Primary ICD-10 Diagnosis Addressed: Arthralgia, unspecified joint [M25.50] Provider Nutrition Notes: ELIMINATION Nightshade Free Chief Concerns: body aches October 01, 2020 - Moderate No n/a Hot flashes October 01, 2020 - Moderate No n/a not sleeping well October 01, 2018 - Moderate No n/a eye dryness Nutrition Assessment (06/24/22) Digestive symptoms: Yes, bloated feeling Other relevant symptoms: Daytime sleepiness, headache, foot cramps, anxiety Food and Nutrition History (special diet(s) or nutritional program): Yes- I basically follow a paleo diet - meat and vegetables in general Adverse Reactions to Foods: Yes, Cheese, [place] Foods Diet Recall: Yes B: Latte, eggs, or oatmeat / Avocado toast with Smoked [place] L: Chicken and sweet potato D: Chicken and vegetable Snacks: Apple pb Beverages: water, coffee, tea Anthropometrics There were no vitals taken for this visit. Last Height: No data found for this vital: Ht Last Weight: Last Wt No data found for Wt Wt: 53.1kg BMI: 20.73 Learning Needs Assessment: Barriers to Learning: Ready to Learn (no barriers noted) Assessed motivation to learn: high Nutrition Diagnosis: Food and nutrition related knowledge deficit (NB-1.1) related to lack of prior education as evidenced by patient's verbalized inaccurate/incomplete information. Nutrition Intervention 06/24/2022: Nutrition Education Content and Nutrition Education Application Current Nutrition Goal(s): reduce diet-related inflammation suspected as symptom trigger, identify food sensitivities suspected as symptom trigger, and promote adequate nutritional intake to meet macro and micronutrient needs Plan from the start. Access the [facility] Nutrition Portal in [facility] to access your food plan comprehensive guide, weekly recipe cyber intel planner, and food list. Shop for foods and ingredients from the food list. Follow your initial nutrition prescription for 3-8 weeks Your Food Plan: ELIMINATION Nightshade Free Elimination Diet The Elimination Food Plan removes common foods that may be causing symptoms and, with reintroduction, helps patients identify the foods that may be triggering their symptoms. Food Plan Principles Identify Food Triggers Reduce Inflammation Support Healthy Microbiome No calorie restriction Promote body awareness to food As needed, gradually eliminate caffeine, alcohol, and sugar before you start the full plan. Include Avoid Fruits Healthy oils Lean meats Legumes Nuts Seeds Vegetables Non-starchy vegetables Gluten Dairy Eggs [place] Soy Pork Beef Shellfish Peanuts Processed meats Caffeinated coffee Black tea Alcohol Chocolate Your Food Plan Modifier: Modifiers: Nightshade Free Please avoid all foods identified as nightshades on your food plan Hot peppers (chili, jalapeno, habanero, and scotch bonnet, Tabasco pepper, etc.) [place] (sweet) Peppers Tomatoes Eggplant Potatoes (except sweet potatoes) Pimentos Other foods within the nightshade family include: Other Vegetables: tomatillos (groundcherry), pimentos Fruits: [place] gooseberries, goji berries, naranjillas, tamarillo, garden huckleberries, pepino, sunberries, cocon Spices: chili-based like cayenne, chili powder, crushed red pepper, and paprika Other: ashwagandha, tobacco Tips for Success: 1. Plan from the start. Access the Functional Nutrition Portal in [facility] to access your food plan comprehensive guide, weekly recipe cyber intel planner, and food list. Shop for foods and ingredients from the food list. 2. Consume enough food to fuel your body. Pair protein (protein/legumes), healthy fat (oils/nuts & seeds) and whole food carbohydrates (starchy vegetable, fruit, grains as applicable) at each meal. Aim for 5-6 cups of non-starchy veggies throughout the day! 3. Balanced Blood Sugar is Garcia. Remember to watch out for added refined sugars and artificial sweeteners. Instead, enjoy small amounts of natural sweeteners (honey, maple syrup, blackstrap molasses, liquid stevia), up to about a tablespoon per day. 4. Reach out for support. You may notice that certain elements of the food plan are more challenging for you, or that you need to personalize your initial food plan further. If you could use additional guidance, please don't hesitate to reach out! 5. Remember to hydrate. Symptoms of dehydration can often be confused with hunger or cause low energy. Review your food plan for the best hydration options. How to Access Well Done Your Food Plan Resources: Accessing on Well Done To access Well Done, please visit: [email or web address] to create a new account. Step 1: Create Your Account: Complete the following burnett: username, password, email address, first name & last name. Click 'Create My New Account'. A message will display. Click continue. Step 2: Verify Your Account: Check your email for an email from Well Done. In the email, click the link provided to launch Well Done and complete registration. Step 3: Enroll in the 'Functional Nutrition Portal'. Once you have launched Well Done, hover over the Find Learning tab, and click on the drop-down option 'Courses'. Search for the course Functional Nutrition Portal in the search field. In the search results, click the link to access the course. Step 4: Enter the Enrollment Garcia Functional Nutrition (this is case sensitive and requires a space-please type this password exactly as shown in red). Step 5: To login after enrollment, visit [email or web address]. Login under 'Non-Employee Login' using the username and password from step #1. Step 6: If you receive an error message that you already have an account, please click 'forgotten your username of password?' to reset your password. Need Help? If you have difficulty accessing this course, please email [email or web address]. Adherence Potential to Goals/Care Plan: High Nutrition Monitoring & Evaluation: Adherence to food plan, changes in symptom frequency and intensity, nutrition-related laboratory data Criteria: Dietary recall, laboratory results, subjective symptom response Education Materials Provided: Food Plan Comprehensive Guide, Weekly Dinkey Engine Mechanic and Recipes, Phytonutrient Spectrum Foods, Product Guide, Simple Meal and Snack Ideas Follow up: 4 Weeks Time Spent: 60 minutes Referred/Supervised by: Johann Celestin DO Consult Billing Type: Group/60 minutes Number of Increments: 2 (60 minutes) Signed by: Claudine Espitia RD documented in this encounter [facility] 06-24-[address] - 06/24/2022 10:43 AM EST Images from the original note were not included. [facility] FOLLOW UP NUTRITION INSTRUCTIONS We recommend scheduling your Follow-up appointment at the end of your initial appointment. Nutrition Follow-up: In 4-6 weeks with Functional Medicine Registered Dietitian (Ivonne Daniel, Mireya Chow or Kate) Preparation for Follow-up: Complete a 3 day food record using the Diet, Nutrition and Lifestyle Journal from the Functional Nutrition Portal If follow-up is virtual: scan into KidsLink or send to before joining your appointment If follow-up is in person: bring to your appointment Your Prescribed Nutrition Plan: Plan from the start. Access the Functional Nutrition Portal in Well Done to access your food plan comprehensive guide, weekly recipe cyber intel planner, and food list. Shop for foods and ingredients from the food list. Follow your initial nutrition prescription for 3-8 weeks Your Food Plan: ELIMINATION Nightshade Free Elimination Diet The Elimination Food Plan removes common foods that may be causing symptoms and, with reintroduction, helps patients identify the foods that may be triggering their symptoms. Food Plan Principles Identify Food Triggers Reduce Inflammation Support Healthy Microbiome No calorie restriction Promote body awareness to food As needed, gradually eliminate caffeine, alcohol, and sugar before you start the full plan. Include Avoid Fruits Healthy oils Lean meats Legumes Nuts Seeds Vegetables Non-starchy vegetables Gluten Dairy Eggs [place] Soy Pork Beef Shellfish Peanuts Processed meats Caffeinated coffee Black tea Alcohol Chocolate Your Food Plan Modifier: Modifiers: Nightshade Free Please avoid all foods identified as nightshades on your food plan Hot peppers (chili, jalapeno, habanero, and scotch bonnet, Tabasco pepper, etc.) Mccray (sweet) Peppers Tomatoes Eggplant Potatoes (except sweet potatoes) Pimentos Other foods within the nightshade family include: Other Vegetables: tomatillos (groundcherry), pimentos Fruits: Cape gooseberries, goji berries, naranjillas, tamarillo, garden huckleberries, pepino, sunberries, cocon Spices: chili-based like cayenne, chili powder, crushed red pepper, and paprika Other: ashwagandha, tobacco Tips for Success: 1. Plan from the start. Access the Functional Nutrition Portal in [facility] to access your food plan comprehensive guide, weekly recipe cyber intel planner, and food list. Shop for foods and ingredients from the food list. 2. Consume enough food to fuel your body. Pair protein (protein/legumes), healthy fat (oils/nuts & seeds) and whole food carbohydrates (starchy vegetable, fruit, grains as applicable) at each meal. Aim for 5-6 cups of non-starchy veggies throughout the day! 3. Balanced Blood Sugar is Garcia. Remember to watch out for added refined sugars and artificial sweeteners. Instead, enjoy small amounts of natural sweeteners (honey, maple syrup, blackstrap molasses, liquid stevia), up to about a tablespoon per day. 4. Reach out for support. You may notice that certain elements of the food plan are more challenging for you, or that you need to personalize your initial food plan further. If you could use additional guidance, please don't hesitate to reach out! 5. Remember to hydrate. Symptoms of dehydration can often be confused with hunger or cause low energy. Review your food plan for the best hydration options. How to Access Well Done Your Food Plan Resources: Accessing on Well Done To access Well Done, please visit: [email or web address] to create a new account. Step 1: Create Your Account: Complete the following burnett: username, password, email address, first name & last name. Click 'Create My New Account'. A message will display. Click continue. Step 2: Verify Your Account: Check your email for an email from Well Done. In the email, click the link provided to launch Well Done and complete registration. Step 3: Enroll in the 'Functional Nutrition Portal'. Once you have launched Well Done, hover over the Find Learning tab, and click on the drop-down option 'Courses'. Search for the course Functional Nutrition Portal in the search field. In the search results, click the link to access the course. Step 4: Enter the Enrollment Garcia Functional Nutrition (this is case sensitive and requires a space-please type this password exactly as shown in red). Step 5: To login after enrollment, visit [email or web address]. Login under 'Non-Employee Login' using the username and password from step #1. Step 6: If you receive an error message that you already have an account, please click 'forgotten your username of password?' to reset your password. Need Help? If you have difficulty accessing this course, please email [email or web address]. ADDITIONAL INSTRUCTIONS: How to Contact Your Functional Medicine Team (Open M-F 8am-5pm): 1. MyChart is the BEST form of communication to reach the Functional Medicine Team, see test results and request refills. Please allow 72 business hours for a response. Directions for signing up are included in your New Patient Folder. (Or you can go to [email or web address]) 2. For nutrition related questions or concerns, BigDoorhart message your physician and include Attn: Claudine Espitia RD at the top of the message. BigDoorharSurvata messaging is meant to support implementation of previously outlined nutrition care plans. In the interest of safe, effective and personalized care, you are asked to schedule a follow-up appointment if: It has been >6 months since your last nutrition appointment Your question requires reassessment or involves a new plan of care Your question concerns a new diagnosis, symptoms(s) and/or health concern Ordering Supplements: Supplements can be ordered from the [facility]'s Online Store: [email or web address] New patients to the [employer] will need to enter the provider code FUNCTIONAL to register their account. documented in this encounter [facility] 06-24-2022 History of Present illness Narrative GROUP HEALTH RIVER EXPEDITION GUIDE COHORT IN PERSON Patient was part of an in-person, group health gymnastics coach or instructor session. Patient received education and participated in discussion about modifiable lifestyle factors and healthy habits, with emphasis on the role of the health gymnastics coach or instructor within the functional medicine model and the Wheel of Wellness. Other topics of discussion included Functional Medicine process and scheduling for follow-up visits and support prior to next visit. .................................. .................................. .................................. . FOLLOW UP: 30-Minute Consultation with Health Return Clerk within 1-2 weeks Time Spent with Patient: 30 minutes Signed by: Irena Graham [facility] documented in this encounter [facility] 06-24-2022 Instructions Irena GouldBob, [facility] - 06/24/2022 10:32 AM EST Images from the original note were not included. [facility] FUNCTIONAL MEDICINE HEALTH RIVER EXPEDITION GUIDE FOLLOW-UP At the [facility], we focus on the person as a whole: Mind, Body, and Spirit. Working with your Health Return Clerk on a regular basis can help you prioritize your next steps and build a strong foundation for healing. Our goal is to ask the right questions while empowering you to discover your own solutions and determine your own path for creating the health you desire. Our focus is on establishing your desired outcomes, working with you to overcome challenges and on determining practical action steps for implementing lifestyle changes. Staff Health Return Clerk Follow-Up Timeframe: Within 1-2 Weeks with Functional Medicine Health Return Clerk (Irena Yu or Johana) Schedule your initial 1:1 health coaching appointment and/or Mindfulness group coaching session For 1:1 appointments: schedule by calling the appointment center ([phone] option #1) or through KidsLink self-scheduling For Mindfulness group coaching choose from Mindset, Stress, Movement, or Sleep. 2. Sign up for the Healthy Living Shop to order your supplements 3. Create a Well Done account to access the Functional Health Coaching Portal Review the Wheel of Wellness self-assessment tool in preparation for your first 1:1 appointment How to Access the Functional Health Coaching Portal: To access Well Done, please visit: [email or web address] to create a new account. Step 1: Create Your Account: Complete the following burnett: username, password, email address, first name & last name. Click 'Create My New Account'. A message will display. Click continue. Step 2: Verify Your Account: Check your email for an email from Well Done. In the email, click the link provided to launch Well Done and complete registration. Step 3: Enroll in the 'Functional Health Coaching Portal'. Once you have launched Well Done, hover over the Find Learning tab, and click on the drop-down option 'Courses'. Search for the course Functional Health Coaching Portal in the search field. In the search results, click the link to access the course. Step 4: Enter the Enrollment Garcia Functional Coaching (this is case sensitive). Step 5: To login after enrollment, visit [email or web address]. Login under 'Non-Employee Login' using the username and password from step #1. If you have difficulty accessing this course, please email [email or web address] ADDITIONAL INSTRUCTIONS: How to Contact Your Functional Medicine Team (Open M-F 8am-5pm): MyChart is the BEST form of communication to reach the Functional Medicine Team, see test results and request refills. Please allow 72 business hours for a response. Directions for signing up are included in your New Patient Folder. (Or you can go to [email or web address]) Ordering Supplements: Supplements can be ordered from the [facility]'s Online Store: [email or web address] New patients to the [employer] [facility] will need to enter the provider code FUNCTIONAL to register their account. Electronically signed by [facility] at 06/24/2022 10:32 AM EST documented in this encounter [facility] 06-24-2022 History of Present illness Narrative FUNCTIONAL MEDICINE INITIAL ASSESSMENT Patient: Brenda Turner ALLERGIES No Known Allergies Current Outpatient Medications Medication Sig Dispense Refill rhapontic rhubarb root extract (ESTROVERA) 4 mg tablet Take 1 tablet by mouth daily with food. No current facility-administered medications for this visit. No past medical history on file. No past surgical history on file. EVALUATION MSQ: 32 Patient Entered Questionnaire PROMIS Scale T-Scores -- HIGHER SCORES BETTER PROMIS Global Health - (T-Scores - the mean of general population = 50. Five points is a clinically meaningful difference.) 06/18/2022 06/18/2022 06/18/2022 Physical T-Score 47.7 47.7 47.7 Mental T-Score 48.3 48.3 48.3 Depression Screening: PHQ-9 06/18/2022 Score 3 PHQ-9 Self Harm 06/18/2022 Question 9 Not at all PHQ-9 Self-Harm (Item 9) response options: 0 Not at all 1 Several days 2 More than half the days 3 Nearly every day PHQ-9 Levels: 0-4 Minimal depression 5-9 Mild depression 10-14 Moderate depression 15-19 Moderately severe depression 20-27 Severe depression June 24, 2022 Johann Celestin DO Patient Goals: Health optimization HPI: 51 year old female with a pmh that presents to [facility] to optimize health. Previously used muscle testing to eliminate packaged foods, sugar, dairy I'm having menopause related issues, body aches, eye dryness, not sleeping well, hot flashes, and headaches at times. Menopause, sleep issues have been since my mom 1.5 years ago. Not sure about the body aches. I never get headaches, so I'm not sure. Make sure i'm on the right track with eating. check lab work, make sure all is well there No periods for seven months- new onset poor sleep, body aches, hot flashes Dry eyes, dry skin, dry mouth as of late, + brandon Jackson- terry kelly- helped her process grief from multiple deaths in her family- Mom passed of cancer : [employer]: highly processed diet- Middle: Dental work HS: [employer] Lifestyle and Exposure History: Diet-tries to eliminate processed foods BM-bristol 4 daily- steve at times Sleep-6 hrs- - tired upon awakening Exercise-active- dancing/ walking/ gentle yoga Stress-working with a shaman which helps stress Relationships- good support system ONEL-0 Drugs/ETOH/tobacco- none 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 Bioelectrical Impedance Analysis Results by [employer] Recent Results from: 06/24/22 at 9:55 AM BMI: 20.73 kg/m General Test Result Range Phase Angle (PA) Basal Metabolic Rate (BMR) Fat & Fat Free Mass Test Result Range Fat (lbs) Fat % Fat Free Mass (FFM) lbs Total Body Water Test Result Range TBW (lbs) TBW % of FFM Intracellular Water Test Result Range ICW (lbs) ICW % of FFM Extracellular Water Test Result Range ECW (lbs) ECW % of FFM PHYSICAL EXAM: Constitutional: She is oriented to person, place, and time and well-developed, well-nourished, and in no distress. HENT: dry mouth, dry skin Head: Normocephalic and atraumatic. Pulmonary/Chest: Effort normal. Neurological: alert and oriented to person, place, and time. Psychiatric: Mood, affect and judgment normal. Initial Functional Medicine Assessment Underlying Causes: stress, toxins, infection, nutritional insufficiencies or excessess, sleep Triggers/Mediators: exposures, genomics, stress Today's Focus: gut healing Nutritional Assessment Minimally processed - dairy free Food reactions- to citrus Digestive Function Bloating Inflammation/Immune Function Yeast infections with dairy Autoimmune - RA, SLE, Psoriasis, etc Energy Production/Function: Fatigue Cognitive decline/brain fog Migraines/Headaches Detoxification Function Mercury/Amalgams Mold exposure Hormonal Function: Perimenopause Structural Function: Musculoskeletal pain Assessment Assessment: M25.50 Arthralgia, unspecified joint (primary encounter diagnosis) G47.9 Sleep disturbance M79.10 Myalgias N95.1 Hot flushes, perimenopausal M79.10 Myalgia I73.00 Raynaud's disease without gangrene E61.9 Deficiency of nutrient element, unspecified R53.81 Other malaise T78.1XXA Gastrointestinal food sensitivity Z91.018 Multiple food allergies R53.82 Chronic fatigue Z77.120 Mold exposure Plan and Lifestyle Prescription Plan/Instructions/Resources: Will obtain Labs at [facility]- evaluate for micronutrient deficiencies, inflammatory markers, assess for mold exposure, insulin resistance, thyroid function [facility]- 3 day stool profile Biologic dentists- Dr. Shaun Sauceda - [facility] in [place]. [phone] D[address] Lang and Precious [address] [place] [address] [email or web address] Wild caught fish- goal 3-4 x week -Sardines, anchovies, salmon, mackerel, farrar If estrovera is cost-prohibitive- Can try motherswort- 1 dropperful upto 4 times a day for hotflashes -Brands Brittany Herbs or Herbpharm --- Sauna for 10 minutes of sweating daily. (can be portable, in-house fabric type) If you're not sweating within 30 minutes, get out and shower anyway, and continue daily sauna until you start to sweat. If you sweat more than 10 minutes, you'll have diminishing returns and have to take minerals. (Coconut water, or NUUN, LMNT) Better to sauna daily/ regularly for short periods rather than weekly for long periods. --- Natural ways to detox: Go Slowly one at a time, add steps as you feel you can 1. Sweat daily 2. Dry brushing: use loofah brush over body, always moving towards the heart daily before showering. If you feel worse with the above two, this is a sign of a lot of toxin build up, decrease what you are doing to the level you can tolerate. 3. Drink water: an appropriate amount is 1/2 your body weight in ounces. Please add organic lemon and if you do not have organic lemon, just squeeze the lemon juice and throw away the rind which is where the pesticides are. 5. Eat organic as much as possible. Please visit the environmental working group to learn about fruits and veggies with the highest amount of toxins on them called the dirty dozen. EWG.org. Try to eat clean sources of meat as well. If you can not afford this, more vegetables than fruits are important to consume since they help up regulate your detoxification ability. 6. Get the free marcellus: think dirty. It evaluates your personal care products and household products to make sure they are toxin free or low in toxins. Aim for a grade of 3 or less. 7. You can also do an epsom salt bath every night. Add at least 1/2 cup epsom salt with baking soda 1/2 cup to further alkalinize the body. 8. Regular use of sachi, cilantro, chlorella and fiber from vegetables, juicing fiber (don't throw it away, eat it!), and adding Rice Bran Fiber to your daily smoothie or food can help you detoxify as well as making sure you urinate mostly clear urine except for the first morning void, daily large bowel movements and sweating. Consume more foods that support DETOXIFICATION: (orgabuc if possible) There are many powerful foods that support the liver in removing toxins from the body. The following list are among some of the best. Dark leafy vegetables: Kale, Sarai Greens, Arugula, Watercress and Mustard Greens) Onions Artichoke Cruciferous or Brassica Family vegetables: Broccoli and Broccoli Sprouts, [place] Sprouts, Cabbage, Kale, and Cauliflower) Minimum of 2 cups daily. Herbs, Fresh Sachi,Cilantro and Parsley (these are natural chelators of toxins and heavy metals) Blueberries, blackberries etc. Avoid big fish - www.nrdc.org lowest mercury only - also safe farmed fish Filter water and drink lots of it! Detox: - Consider Dr. Ada Owusu's book on Whole Detox for guidance. In the book she has many recipes that you can use. I think the smoothies In the book is a good place to start. Here is one to consider: Rooty Shake By Ada Owusu and Fernanda Alberto - 1 medium raw beets, cubed - 1/2 red apple in slices (peeled if not organic) - juice from one small lemon - 3-5 leaves of claudia or your favorite leafy vegetables - 1 scoop of protein powder of your choice (rice, hemp, pea) - 1/2 tbsp of flax seeds or flax meal - 1/8 tsp of turmeric - dash pepper - 1/2 cup water Blend, add more water if needed. Medications/Supplements Recommended: Orders Placed This Encounter rhapontic rhubarb root extract (ESTROVERA) 4 mg tablet Sig: Take 1 tablet by mouth daily with food. Get started by following three easy steps: Visit the following webpage: [email or web address] Create an account: Enter your first name, last name, email address which will be your username Create password Select a referring physician from the dropdown box. If they are not listed, select other If you are a new patient, enter the following provider code: functional Order recommended supplementation Enter the supplement name in the search box Add all supplements to your cart and proceed to checkout. Orders of $100 or more qualify for free shipping. *Please allow 5-7 business days for delivery. For issues with your MRN please call [phone] Provider Code: Functional (not case sensitive) I recommend the supplements from the [facility] Healthy Living Online Store at [email or web address] as we have thoroughly evaluated the research and use only highest quality supplements. Please use code: functional. Future Plans: GI effects Follow up: Please schedule a follow up visit in- person or virtual with the following Caregivers: Provider: 12weeks LIFESTYLE PRESCRIPTION Functional Nutrition: ELIMINATION: Nightshade Free: At the [facility], we focus on the person as a whole. Mind, Body, and Spirit. Our Health Coaches are here to support you along this journey. Health Coaching is a valuable (& FREE) service at the [facility] which we offer to all of our patients. Their role is to help you put your functional medicine care plan into action and help you achieve your health goals. Working with your Health Return Clerk on a regular basis can help you prioritize your next steps and build a strong foundation for healing. Your Health Return Clerk will partner with you to develop a personalized plan for movement, sleep, and stress management. Exercise and Movement: Being consistently active helps you to live longer, have a better quality of life, improve your mental health, and improve your self-image. No matter your current activity level, there is a form of movement for you! Our Health Coaches can share valuable resources, provide accountability, help with goal setting, and offer encouragement! Sleep Health: Getting a good night s sleep is not just about quantity, but also quality. Both are critical to helping the body and mind repair and replenish from the day s activities. Among the many health benefits, a good night s sleep helps improve memory, boost the immune system, enhance mood, lower stress hormones and can even reduce pain! Learn how to protect your sleep with one of our Health Coaches. Your body and mind will thank you! Stress Resilience and Islam: Don t let stress run the show! In a world full of stress and demands, practicing self-care through restorative activities is critical. Restorative activities, such as meditation, guided imagery, breathing techniques, gratitude journaling, and mindfulness, are proven ways to not just calm the mind, but also heal the body. During your health coaching appointment, you ll be able to build valuable skills that will help you not just manage stress, but thrive! Referrals: Health Coaching: Within the next two weeks, please schedule with your Health Return Clerk in order to create an individualized lifestyle plan. You can call to schedule. Behavioral Health Therapist: If I recommended counseling or individual therapy, please schedule an individual appointment with our Functional Medicine Behavioral Health Therapist after your visit today. A Behavioral Health Therapist helps patients identify and understand feelings and behaviors, experience the process of making positive change, and gain healthy coping skills. Our Behavioral Health Therapist specializes in both traditional and holistic psychotherapy. During the next 6-8 weeks you'll be working on your diet plan discussed with our chiseler head, allowing for gentle detoxification and decreasing inflammation - while we are gathering your lab results and combining those with your complete history to formulate a very personalized treatment plan. LAB results: Due to the complexity of the testing performed, we are not able to review labs via [employer] or over the phone, but please know, if any of your labs are critical we will contact you. Otherwise, we will review all your labs at your next visit. We will go over a lot of information during your follow up visit - so please be well-rested. Also make sure to schedule with the chiseler head (this will not happen automatically). Potential future labs: Any [facility] labs ordered take about 4 weeks to return. Do them as soon as possible so that we have the results before your next appointment. You can access them on the [facility] website and it can be beneficial if you review them prior to your next visit. [email or web address]. Read about [employer] if this was ordered. Johann Celestin, DO Time spent with patient: I spent a total of 60 minutes on the date of the service which included preparing to see the patient, [id number] patient care, completing clinical documentation, obtaining and/or reviewing separately obtained history, performing a medically appropriate examination, counseling and educating the patient/family/caregiver, ordering medications, tests, or procedures, communicating with other HCPs (not separately reported), independently interpreting results (not separately reported), communicating results to the patient/family/caregiver, and care coordination (not separately reported). documented in this encounter [facility] Evaluation note Diagnosis Arthralgia, unspecified joint- Primary Sleep disturbance Sleep disturbance, unspecified Myalgias Hot flushes, perimenopausal Symptomatic menopausal or female climacteric states Myalgia Mylagia and myositis, unspecified Raynaud's disease without gangrene Deficiency of nutrient element, unspecified Other malaise Gastrointestinal food sensitivity Allergic gastroenteritis and colitis Multiple food allergies Other adverse food reactions, not elsewhere classified Chronic fatigue Other malaise and fatigue Mold exposure Contact with and (suspected) exposure to mold [facility] Diagnosis Arthralgia, unspecified joint- Primary Dietary counseling and surveillance Dietary surveillance and counseling documented in this encounter [facility] note* Diagnosis Encounter for person encountering health services- Primary documented in this encounter [facility] note* Diagnosis Encounter for person encountering health services- Primary [facility] Diagnosis Perimenopause- Primary Symptomatic menopausal or female climacteric states Poor sleep documented in this encounter [facility] note* Diagnosis Perimenopause- Primary Symptomatic menopausal or female climacteric states documented in this encounter [facility] Summary Purpose Family History No Family History Records FoundNo Family History Records FoundNo Family History Records FoundNo Family History Records FoundNo Family History Records Found Advance Directives No Advanced Directives Records FoundNo Advanced Directives Records FoundNo Advanced Directives Records FoundNo Advanced Directives Records FoundNo Advanced Directives Records Found Additional Source Comments INFORMATION SOURCE (unrecogn ized section and content) DATE CREATED AUTHOR 11/20/[address] [facility] DATE CREATED AUTHOR AUTHOR'S ORGANIZ ATION 11/26/2023 [facility] DATE CREATED AUTHOR AUTHOR'S ORGANIZ ATION 01/03/2024 [facility] DATE CREATED AUTHOR AUTHOR'S ORGANIZ ATION 06/04/2024 [facility] DATE CREATED AUTHOR AUTHOR'S ORGANIZ ATION 07/17/2024 [facility] Source Comments (unrecognize d section and content) In the event this informatio n is protected by the Federal Confidentiality of Alcohol and Drug Abuse Patient Records regulations: The Federal rules restrict any use of the information to criminally investigate or prosecute any alcohol or drug abuse patient.[facility] the event this information is protected by the Federal Confidentiality of Alcohol and Drug Abuse Patient Records regulations: The Federal rules restrict any use of the information to criminally investigate or prosecute any alcohol or drug abuse patient.[facility] the event this information is protected by the Federal Confidentiality of Alcohol and Drug Abuse Patient Records regulations: The Federal rules restrict any use of the information to criminally investigate or prosecute any alcohol or drug abuse patient.[facility] the event this information is protected by the Federal Confidentiality of Alcohol and Drug Abuse Patient Records regulations: The Federal rules restrict any use of the information to criminally investigate or prosecute any alcohol or drug abuse patient.[facility] the event this information is protected by the Federal Confidentiality of Alcohol and Drug Abuse Patient Records regulations: The Federal rules restrict any use of the information to criminally investigate or prosecute any alcohol or drug abuse patient.[facility] Hospital[facility] the event this information is protected by the Federal Confidentiality of Alcohol and Drug Abuse Patient Records regulations: The Federal rules restrict any use of the information to criminally investigate or prosecute any alcohol or drug abuse patient.[facility] Hospital[facility] the event this information is protected by the Federal Confidentiality of Alcohol and Drug Abuse Patient Records regulations: The Federal rules restrict any use of the information to criminally investigate or prosecute any alcohol or drug abuse patient.[facility] Hospital[facility] the event this information is protected by the Federal Confidentiality of Alcohol and Drug Abuse Patient Records regulations: The Federal rules restrict any use of the information to criminally investigate or prosecute any alcohol or drug abuse patient.[facility] Hospital[facility] the event this information is protected by the Federal Confidentiality of Alcohol and Drug Abuse Patient Records regulations: The Federal rules restrict any use of the information to criminally investigate or prosecute any alcohol or drug abuse patient.[facility] HospitalIn the event this information is protected by the Federal Confidentiality of Alcohol and Drug Abuse Patient Records regulations: The Federal rules restrict any use of the information to criminally investigate or prosecute any alcohol or drug abuse patient.[facility] HospitalIn the event this information is protected by the Federal Confidentiality of Alcohol and Drug Abuse Patient Records regulations: The Federal rules restrict any use of the information to criminally investigate or prosecute any alcohol or drug abuse patient.[facility] HospitalIn the event this information is protected by the Federal Confidentiality of Alcohol and Drug Abuse Patient Records regulations: The Federal rules restrict any use of the information to criminally investigate or prosecute any alcohol or drug abuse patient.[facility] Hospital[facility] the event this information is protected by the Federal Confidentiality of Alcohol and Drug Abuse Patient Records regulations: The Federal rules restrict any use of the information to criminally investigate or prosecute any alcohol or drug abuse patient.[facility] HospitalIn the event this information is protected by the Federal Confidentiality of Alcohol and Drug Abuse Patient Records regulations: The Federal rules restrict any use of the information to criminally investigate or prosecute any alcohol or drug abuse patient.[facility] Care Teams (unrecognized sec tion and content) Scallop Cutter Relationship Specialty Start Date End Date Pcp, No PCP - General 12/15/21 07/02/22 Scallop Cutter Relationship Specialty Start Date End Date Pcp, No PCP - General 12/15/21 07/02/22 Scallop Cutter Relationship Specialty Start Date End Date Pcp, No PCP - General 12/15/21 07/02/22 Scallop Cutter Relationship Specialty Start Date End Date Stacia Nieves APRN.LUISANA [address] [place], [place] [id number] PCP - General Family Medicine 05/21/24 Scallop Cutter Relationship Specialty Start Date End Date Stacia Nieves APRN.LUISANA [address] [place] [address] PCP - General Family Medicine 05/21/24 Reason for Visit (unrecogniz ed section and content) Reason Comments New Patient Reason Comments Established Patient Reason Comments Established Patient Follow up pain on upper left side back in a past FOR RECORDS PERTAINING TO PATIENTS WHO ARE OR HAVE BEEN ENROLLED IN A CHEMICAL DEPENDENCY/SUBSTANCEABUSE PROGRAM, SOME INFORMATION MAY BE OMITTED. This clinical summary was aggregated from multiple sources. Caution should be exercised in using it in the provision of clinical care. This summary normalizes information from multiple sources, and as a consequence, information in this document may materially change the coding, format and clinical context of patient data. In addition, data may be omitted in some cases. CLINICAL DECISIONS SHOULD BE BASED ON THE PRIMARY CLINICAL RECORDS. [facility] [employer] [facility]. provides no warranty or guarantee of the accuracy or completeness of information in this document.
== END | disposition home or self-care (01) ==
PROVIDERS: PCP Nurse Practitioner; Referring Provider Nurse Practitioner; Visit Provider Nurse Practitioner
DX: L01.00 Impetigo, unspecified (principal)
CPT/HCPCS: 87070; 87077; 87205